=== PATIENT | female | born 1960 | race African-American/Black ===

== ENCOUNTER 2016-12-20 19:49 | Emergency (ER) | payer OTHER ==
--- NOTE | 2016-12-20 19:52 | PDOC ---
History of Present Illness - General History Source: Patient Exam Limitations: No Limitations - History of Present Illness Initial Comments: 12/20/16 21:04 A portion of this note was documented by scribe services under my direction. I have reviewed the details of the note, within reason, and agree with the documentation. The case summary and management plan written by me. Assessment and plan: This is a 56-year-old female who comes in complaining of possible foreign body in her an anterior abdominal wall. Patient is a diabetic with an insulin pump and comes in complaining of pain in the area where her insulin pump was. Her doctors concerned there may be a broken needle in the area so she had an x-ray that was negative for any foreign body. The area is indurated with no palpable collection however patient was started on Keflex by her doctor and I gave her a gram of vancomycin to cover her for MRSA. Patient was referred back to her primary care doctor for further management and evaluation. <Rose Sam I - Last Filed: 12/20/16 21:04> - General History Source: Patient Exam Limitations: No Limitations - History of Present Illness Initial Comments: The patient is a 56 year old female with a significant past medical history of diabetes, hypertension, hypercholesterolemia, hypothyroid, who presents to the emergency department today for further evaluation of a abdominal pain for 5 days and an abdominal mass for 2 days. The patient states that she began to feel pain in her right lower quadrant where her insulin pump tube enters her body. She states that 3 days ago she took the tube out. 2 days ago she noticed a mass forming in the area where the tube had been. The patient was sent to the emergency department by her doctor to rule out the possibility that the needle from her insulin pump is stuck in her abdomen. The patient denies fever, chills, and sweats. The patient denies nausea, vomiting, and diarrhea. The patient denies chest pain, cough, and shortness of breath. PCP: Dr. Alec Camargo [phone] PAST MEDICAL HISTORY: Diabetes, hypertension, hypercholesterolemia, hypothyroid PAST SURGICAL HISTORY: No significant history reported. FAMILY HISTORY: No pertinent history reported. SOCIAL HISTORY: Denied smoking. MEDICATIONS: Reviewed ALLERGIES: As per nursing notes General: No fevers or chills, no weakness, no weight loss HEENT: No change in vision. No sore throat, No ear pain CardioVascular: No chest pain or shortness of breath Respiratory:No cough, or wheezing. Gastrointestinal: no nausea, vomiting, diarrhea or constipation, No rectal bleeding Genitourinary: No dysuria, hematuria, or frequency Musculoskeletal: No joint or muscle pain or swelling Neurologic: No headache, vertigo, dizziness or loss of consciousness Psychiatric: nor depression Skin: No rashes or easy bruising Endocrine: no increased thirst or abnormal weight change Allergic: no skin or latex allergy All other systems reviewed and normal GENERAL: The patient is awake, alert, and fully oriented, in no acute distress. HEAD: Normal with no signs of trauma. EYES: Pupils equal, round and reactive to light, extraocular movements intact, sclera anicteric, conjunctiva clear. ABDOMEN: (+) 4 cm x 4 cm induration with no palpable collection, RLQ tenderness on palpation, with erythema. EXTREMITIES: Normal range of motion, no edema. NEUROLOGICAL: Normal speech, normal gait. PSYCH: Normal mood, normal affect. SKIN: Warm, Dry, normal turgor, no rashes or lesions noted. <Kahlil Bryson - Last Filed: 12/20/16 21:14> - General Chief Complaint: Foreign Body (FB) Stated Complaint: FB TO ABDOMEN Time Seen by Provider: 12/20/16 19:51 Past History - Past Medical History Diabetes: Yes (INSULIN) HTN: Yes Hypercholesterolemia: Yes Thyroid Disease: Yes - Psycho/Social/Smoking Cessation Hx Anxiety: No Suicidal Ideation: No Smoking Status: No Smoking History: Never smoked Number of Cigarettes Smoked Daily: 0 <Rose Sam I - Last Filed: 12/20/16 21:04> <Kahlil Bryson - Last Filed: 12/20/16 21:14> - Past Medical History Allergies/Adverse Reactions: Allergies Allergy/AdvReac Type Severity Reaction Status Date / Time No Known Allergies Allergy Verified 12/20/16 19:51 Home Medications: Ambulatory Orders Bld Pressure Medication 1 tab PO ASDIR 12/20/16 Cholesterol Medication 1 tab PO DAILY 12/20/16 Infusion Set For Insulin Pump [Comfort] 1 each 12/20/16 Thyroid Medication 1 tab PO DAILY 12/20/16 Review of Systems - Review of Systems Able to Perform ROS?: Yes <Kahlil Bryson - Last Filed: 12/20/16 21:14> *Physical Exam - Vital Signs Last Vital Signs Temp Pulse Resp BP Pulse Ox 98.8 F 86 18 186/98 97 12/20/16 19:50 12/20/16 20:35 12/20/16 20:35 12/20/16 20:35 12/20/16 20:35 <Kahlil Bryson - Last Filed: 12/20/16 21:14> ED Treatment Course - LABORATORY CBC & Chemistry Diagram: 12/20/16 21:10 - RADIOLOGY Radiograph Interpretation: EXAM#: TYPE/EXAM: RESULT: [id number] RAD/KUB (KID UR BLAD) Rule out abdominal wall foreign body. KUB There is an electronic device projecting over the right and left iliac bone. No other gross radiopaque foreign body is identified. The bowel gas pattern is nonobstructive. There is a moderate amount of fecal residue in the colon. Rule out constipation Visualized osseous structures appear intact. Significant left facet hypertrophy at L5-S1 level. Impression: See discussion above. Reported By: Froylan Valencia MD 12/20/162112 <Kahlil Bryson - Last Filed: 12/20/16 21:14> *DC/Admit/Observation/Transfer - Discharge Dispostion Admit: No <Rose Sam I - Last Filed: 12/20/16 21:04> - Attestations Scribe Attestion: Documentation prepared by Kahlil Bryson, acting as medical device engineer for Rose Sam MD/DO. <Kahlil Bryson - Last Filed: 12/20/16 21:14> Diagnosis at time of Disposition: Cellulitis of abdominal wall - Discharge Dispostion Disposition: HOME Condition at time of disposition: Stable - Referrals Referrals: Alec Camargo MD [Primary Care Provider] - - Patient Instructions Additional Instructions: Continue to take your cephalexin as prescribed. Tylenol or Motrin as needed for pain. This very important you call your doctor in the morning and follow-up with your doctor. Return to the emergency department immediately with ANY new, persistent or worsening symptoms. Continue any medications as previously prescribed by your physician. You should follow up with your primary doctor as soon as possible regarding today's emergency department visit. . Please make sure your doctor reviews the results of your emergency evaluation. Thank you for coming to the Emergency Department today for your care. It was a pleasure to see you today. Please note that your evaluation is INCOMPLETE until you follow-up with your doctor.
[2016-12-20 20:03] VITALS: TEMP 98.8; BMI 27.2
[2016-12-20 20:36] VITALS: BP 186/98; PULSE 86
[2016-12-20] MEDS ORDERED: VANCOMYCIN 1,000 MG in DEXTROSE 5%-WATER - 250 ML IVPB STA (21:00)
[2016-12-20] MEDS ORDERED: VANCOMYCIN 1,000 MG VIAL (RESTRICTED TO ID ONLY) ONE (21:08)
[2016-12-20 21:23] LABS: BASOPHIL 1.8 % (0-2.0); EOSINOPHIL 2.4 % (0-4.5); MCH 25.6 pg (25.7-33.7); MCHC 32.8 g/dl (32.0-36.0); MEAN CELL VOLUME 78.2 fl (80-96); MEAN PLT VOLUME 8.8 fl (7.5-11.1); NEUTROPHILS 59.4 % (42.8-82.8); PLATELET COUNT 340 K/MM3 (134-434); RDW 14.4 % (11.6-15.6); WHITE BLOOD COUNT 12.1 K/mm3 (4.0-10.8)
== END 2016-12-20 22:41 | disposition home or self-care (01) ==
LOC: FER 19:49 → SUPCPDRO 19:49 → FER 22:41
DX: L03.311 Cellulitis of abdominal wall (principal); E11.9 Type 2 diabetes mellitus without complications; Z79.4 Long term (current) use of insulin; Z96.41 Presence of insulin pump (external) (internal); I10 Essential (primary) hypertension; E78.00 Pure hypercholesterolemia, unspecified; E03.9 Hypothyroidism, unspecified
CPT/HCPCS: 36415; 74000-TC; 85025; 99283-25

== ENCOUNTER 2016-12-22 00:20 | Emergency (ER) | payer OTHER ==
[2016-12-22 00:31] VITALS: PULSE 76; TEMP 98.5; BMI 27.2
[2016-12-22 00:35] VITALS: BP 172/81
--- NOTE | 2016-12-22 00:42 | PDOC ---
History of Present Illness - General Chief Complaint: Pain Stated Complaint: SHOULDER PAIN/HEADACHE Time Seen by Provider: 12/22/16 00:40 History Source: Patient Exam Limitations: No Limitations - History of Present Illness Initial Comments: 12/22/16 00:40 This is a 56-year-old female who comes in complaining of abdominal pain and shoulder pain. Patient denies any injury or trauma to the area. Patient was here last night for a abdominal wall cellulitis secondary to her insulin pump. Other patient otherwise denies any fevers or chills. Patient is complaining of a mild headache. Patient denies any trauma to the shoulder. Patient said the pain is the outside of the shoulder. Patient took some ibuprofen for the pain with improvement in symptoms. Patient is other valdez denies any cough, congestion , shortness of breath, fever, chills or any other complaints. PAST MEDICAL HISTORY: Diabetes, PAST SURGICAL HISTORY: no significant history FAMILY HISTORY: no pertinant history SOCIAL HISTORY: Pt lives with family and is employed. MEDICATIONS: reviewed ALLERGIES: As per nursing notes Review of Systems General: No fevers or chills, no weakness, no weight loss HEENT: No change in vision. No sore throat,. No ear pain CardioVascular: No chest pain or shortness of breath Respiratory:No cough, or wheezing. Gastrointestinal: no nausea, vomitting, diarrhea or constipation, No rectal bleeding Genitourinary: No dysuria, hematuria, or frequency Musculoskeletal: Left posterior shoulder pain Neurologic: No headache, vertigo, dizziness or loss of consciousness Psychiatric: nor depression Skin: No rashes or easy bruising Endocrine: no increased thirst or abnormal weight change Allergic: no skin or latex allergy All other systems reviewed and normal GENERAL: The patient is awake, alert, and fully oriented, in no acute distress. HEAD: Normal with no signs of trauma. EYES: Pupils equal, round and reactive to light, extraocular movements intact, sclera anicteric, conjunctiva clear. EXTREMITIES: Left shoulder, there is mild pain on palpation. There is full range of motion of the shoulder. Neurovascular distal is intact Abdominal wall: Area of cellulitis of the anterior abdominal wall is much better and improved from last night. Assessment plan: NEUROLOGICAL: Normal speech, normal gait. PSYCH: Normal mood, normal affect. SKIN: Warm, Dry, normal turgor, no rashes or lesions noted. 12/22/16 00:43 Assessment and plan: This is a 56-year-old female with history of diabetes who comes in complaining of a sharp pain in the area of the abdominal wall cellulitis that has now since resolved as well as some pain in her shoulder. Patient denied any associated cardiac symptoms and pain is reproducible with palpation. Pain is along the anterior superior aspect of her shoulder. Patient was reassured told to take ibuprofen for the pain and discharged home. Past History - Past Medical History Allergies/Adverse Reactions: Allergies Allergy/AdvReac Type Severity Reaction Status Date / Time No Known Allergies Allergy Verified 12/20/16 19:51 Home Medications: Ambulatory Orders Bld Pressure Medication 1 tab PO ASDIR 12/20/16 Cholesterol Medication 1 tab PO DAILY 12/20/16 Infusion Set For Insulin Pump [Comfort] 1 each 12/20/16 Thyroid Medication 1 tab PO DAILY 12/20/16 Diabetes: Yes (INSULIN) HTN: Yes Hypercholesterolemia: Yes Thyroid Disease: Yes - Psycho/Social/Smoking Cessation Hx Anxiety: No Suicidal Ideation: No Smoking Status: No Smoking History: Never smoked Number of Cigarettes Smoked Daily: 0 Hx Alcohol Use: No Drug/Substance Use Hx: No Trauma Specific PMHX - Complaint Specific PMHX Back Injury: No Neck Injury: No *Physical Exam - Vital Signs Last Vital Signs Temp Pulse Resp BP Pulse Ox 98.5 F 76 16 172/81 99 12/22/16 00:26 12/22/16 00:26 12/22/16 00:26 12/22/16 00:34 12/22/16 00:26 *DC/Admit/Observation/Transfer Diagnosis at time of Disposition: Cellulitis of abdominal wall Left shoulder pain Qualifiers: Chronicity: acute Qualified Code(s): M25.512 - Pain in left shoulder - Discharge Dispostion Disposition: HOME Condition at time of disposition: Stable - Referrals Referrals: Alec Camargo MD [Primary Care Provider] - - Patient Instructions Additional Instructions: Continue your antibiotics as prescribed. Tylenol or Motrin as needed for pain Return to the emergency department immediately with ANY new, persistent or worsening symptoms. Continue any medications as previously prescribed by your physician. You should follow up with your primary doctor as soon as possible regarding today's emergency department visit. . Please make sure your doctor reviews the results of your emergency evaluation. Thank you for coming to the Emergency Department today for your care. It was a pleasure to see you today. Please note that your evaluation is INCOMPLETE until you follow-up with your doctor.
== END 2016-12-22 00:44 | disposition home or self-care (01) ==
LOC: FER 00:20
DX: L03.311 Cellulitis of abdominal wall (principal); M25.512 Pain in left shoulder; I10 Essential (primary) hypertension; E78.00 Pure hypercholesterolemia, unspecified; E11.9 Type 2 diabetes mellitus without complications; Z79.4 Long term (current) use of insulin
CPT/HCPCS: 99282-25

== ENCOUNTER 2018-12-20 11:05 | Emergency (ER) | payer OTHER ==
--- NOTE | 2018-12-20 11:07 | PDOC ---
Attending Attestation - Resident Resident Name: Aurelia Jones - ED Attending Attestation I have performed the following: I have examined & evaluated the patient, The case was reviewed & discussed with the resident, I agree w/resident's findings & plan, Exceptions are as noted - HPI HPI: 12/20/18 11:25 Irritation and pain plantar aspect of left great toe. Stepped on an unknown object yesterday. No swelling, redness, warmth, or drainage. Insulin-dependent diabetes for 20 years, on insulin, with well controlled blood sugars, and no known endorgan involvement. - Physicial Exam PE: 12/20/18 11:26 PE is normal except for what appears to be a superficial splinter in the plantar aspect of the distal phalanx, left great toe. No swelling, induration, erythema, heat, or severe tenderness to palpation. Full range of motion of the toe, good capillary refill, and no sensory deficits. - Medical Decision Making 12/20/18 11:27 Impression: Superficial splinter Plan: Splinter was easily removed intact and appears to be a sliver of metal. No bleeding or other drainage. Patient feels much better and foreign body sensation is no longer appreciated. Too superficial to require an x-ray. Tetanus is up-to-date. Wound care instructions were given. Recheck immediately if there is any sign of infection including pain, swelling, redness, warmth, or drainage. Fully ambulatory without any alteration of gait, to follow-up as directed.
[2018-12-20 11:08] VITALS: BMI 30.2
--- NOTE | 2018-12-20 11:10 | PDOC ---
History of Present Illness - General Chief Complaint: Pain, Acute Stated Complaint: LEFT TOE PAIN Time Seen by Provider: 12/20/18 11:07 History Source: Patient Exam Limitations: No Limitations - History of Present Illness Initial Comments: 12/20/18 11:11 58 year old woman w/ significant past medical history of diabetes, hypertension , hypercholesterolemia, hypothyroid, who presents to the emergency department today for complaints of L big toe sharp pain that started 3 days ago when [place] and felt that something poked her foot. Since then she has had persistence of the pain and shooting sensation from the site into the calf. She uses an insulin injections and her blood sugars range from 98-125. She denies any loss of sensation, fevers, rashes, weakness, joint swelling or pain since the incident. She has no other complaints at this time. Past History - Past Medical History Allergies/Adverse Reactions: Allergies Allergy/AdvReac Type Severity Reaction Status Date / Time No Known Allergies Allergy Verified 12/20/18 11:06 Home Medications: Ambulatory Orders Amlodipine Besylate [Norvasc -] 10 mg PO DAILY 12/20/18 Atenolol [Tenormin -] 50 mg PO DAILY 12/20/18 Insulin Aspart [Novolog] 0 unit SQ DAILY 12/20/18 Insulin Lispro [Humalog] 0 unit SQ TID 12/20/18 Levothyroxine [Synthroid -] 100 mcg PO DAILY 12/20/18 Valsartan [Diovan] 160 mg PO DAILY 12/20/18 COPD: No Diabetes: Yes (INSULIN) HTN: Yes Hypercholesterolemia: Yes Thyroid Disease: Yes - Suicide/Smoking/Psychosocial Hx Smoking Status: No Smoking History: Never smoked Number of Cigarettes Smoked Daily: 0 Hx Alcohol Use: Yes (OCASIONAL) Drug/Substance Use Hx: No Review of Systems - Review of Systems Able to Perform ROS?: Yes Comments:: 12/20/18 11:13 GENERAL/CONSTITUTIONAL: No fever or chills. No weakness. HEAD, EYES, EARS, NOSE AND THROAT: No change in vision. No ear pain or discharge. No sore throat. CARDIOVASCULAR: No chest pain or shortness of breath RESPIRATORY: No cough, wheezing, or hemoptysis. GASTROINTESTINAL: No nausea, vomiting, diarrhea or constipation. GENITOURINARY: No dysuria, frequency, or change in urination. MUSCULOSKELETAL: No joint or muscle swelling or pain. No neck or back pain. SKIN: No rash NEUROLOGIC: No headache, vertigo, loss of consciousness, or change in strength/ sensation. ENDOCRINE: No increased thirst. No abnormal weight change HEMATOLOGIC/LYMPHATIC: No anemia, easy bleeding, or history of blood clots. ALLERGIC/IMMUNOLOGIC: No hives or skin allergy. Is the patient limited Kazakh proficient: No *Physical Exam - Vital Signs Last Vital Signs Temp Pulse Resp BP Pulse Ox 0/0 L 12/20/18 11:06 - Physical Exam Comments: 12/20/18 11:13 GENERAL: Awake, alert, and fully oriented, in no acute distress HEAD: No signs of trauma, normocephalic, atraumatic EYES: EOMI, sclera anicteric, conjunctiva clear ENT: oropharynx clear without exudates. Moist mucosa NECK: Normal ROM, supple LUNGS: No distress, speaks full sentences, clear to auscultation bilaterally HEART: Regular rate and rhythm, normal S1 and S2, no murmurs, rubs or gallops, peripheral pulses normal and equal bilaterally. ABDOMEN: Soft, nontender, normoactive bowel sounds. No guarding, no rebound. No masses EXTREMITIES : Normal range of motion, no edema. No clubbing or cyanosis. + small metal piece in L big toe NEUROLOGICAL: Cranial nerves II through XII grossly intact. Normal speech, no focal sensorimotor deficits SKIN: Warm, Dry, normal turgor, no rashes or lesions noted Medical Decision Making - Medical Decision Making 12/20/18 11:25 58 year old woman w/ significant past medical history of diabetes, hypertension , hypercholesterolemia, hypothyroid, who presents to the emergency department today for complaints of L big toe sharp pain that started 3 days ago [place] and felt that something poked her foot. Since then she has had persistence of the pain and shooting sensation from the site into the calf. She uses an insulin injections and her blood sugars range from 98-125. She denies any loss of sensation, fevers, rashes, weakness, joint swelling or pain since the incident. She has no other complaints at this time. ED Course: patient with superficial very small metal piece in toe immediate releif of pain upon removal will have patient monitor symptosm. f./ valerie pcp retru nprecatutison *DC/Admit/Observation/Transfer Diagnosis at time of Disposition: Foreign bdy foot/toe-inf - Discharge Dispostion Disposition: HOME Condition at time of disposition: Stable Decision to Admit order: No - Referrals Referrals: Alec Camargo MD [Primary Care Provider] - - Patient Instructions Printed Discharge Instructions: DI for Removal of Foreign Body From Skin Additional Instructions: You were seen in the ED for complaints of possible foreign body in the L toe. In the ED you were evaluated with removal of the metal piece. Your symptoms resolved. You are advised to follow up with your Primary Care Physician within 1 week. Return to the ED immediately if you experience worsening pain in the toe and foot, appearance of rash, swelling or fever. - Post Discharge Activity
[2018-12-20 11:17] VITALS: BP 195/83; PULSE 63; TEMP 98.1
== END 2018-12-20 11:35 | disposition home or self-care (01) ==
LOC: FER 11:05
DX: S90.452A Superficial foreign body, left great toe, initial encounter (principal); X58.XXXA Exposure to other specified factors, initial encounter; Y93.89 Activity, other specified; Y92.89 Other specified places as the place of occurrence of the external cause; E11.9 Type 2 diabetes mellitus without complications; I10 Essential (primary) hypertension; E78.00 Pure hypercholesterolemia, unspecified; E03.9 Hypothyroidism, unspecified; Z79.4 Long term (current) use of insulin; E07.9 Disorder of thyroid, unspecified
CPT/HCPCS: 99282-25

== ENCOUNTER 2019-06-13 10:48 | Inpatient (IN) | payer OTHER ==
--- NOTE | 2019-06-13 10:58 | PDOC ---
History of Present Illness - General Chief Complaint: Rash Stated Complaint: RASH Time Seen by Provider: 06/13/19 10:57 - History of Present Illness Initial Comments: 06/13/19 11:59 59 y/o hx of HTN, IDDM, kidney disease, presents to the ER with 4 days of left shoulder pain and 1 day of rash. She began having burning pain over her shoulder 4 days ago radiating down to her elbow. Pain is 7/10 and exacerbated by touch. she took tylenol with no relief. She woke up with a rash today. She has had associated headache since yesterday. She denies any fevers, chills, itching, sick contacts, eye pain, ear pain. Past History - Past Medical History Allergies/Adverse Reactions: Allergies Allergy/AdvReac Type Severity Reaction Status Date / Time No Known Allergies Allergy Verified 06/13/19 10:57 Home Medications: Ambulatory Orders Atenolol [Tenormin -] 50 mg PO DAILY 12/20/18 Insulin Lispro [Humalog] 0 unit SQ TID 12/20/18 Levothyroxine [Synthroid -] 100 mcg PO DAILY 12/20/18 Aspirin Coated [Ecotrin -] 81 mg PO DAILY 06/13/19 Gabapentin 300 mg PO BID 7 Days #14 capsule 06/13/19 Insulin Glargine,Hum.rec.anlog [Basaglar Kwikpen U-100] 50 unit SQ DAILY Nifedipine ER [Procardia XL -] 30 mg PO DAILY 30 Days #30 tab.er.[email or web address] 06/13/19 Nifedipine ER [Procardia Xl -] 30 mg PO DAILY 06/13/19 Valacyclovir HCl [Valtrex] 1,000 mg PO TID 7 Days #21 tablet 06/13/19 Valsartan 320 mg PO DAILY 06/13/19 COPD: No Diabetes: Yes (INSULIN) HTN: Yes Hypercholesterolemia: Yes Thyroid Disease: Yes - Psycho Social/Smoking Cessation Hx Smoking Status: No Smoking History: Never smoked Number of Cigarettes Smoked Daily: 0 Hx Alcohol Use: Yes (OCASIONAL) Drug/Substance Use Hx: No Review of Systems - Review of Systems Constitutional: No: Chills, Fever HEENTM: No: Eye Pain, Blurred Vision Respiratory: No: Cough, Shortness of Breath Cardiac (ROS): No: Chest Pain, Lightheadedness ABD/GI: No: Nausea, Vomiting : No: Burning, Dysuria, Hematuria, Testicular Swelling Musculoskeletal: No: Muscle Pain Integumentary: Yes: Rash. No: Bruising Neurological: Yes: Headache. No: Numbness Hematologic/Lymphatic: No: Anemia, Blood Clots *Physical Exam - Physical Exam Comments: 06/13/19 12:03 PE: GENERAL: Awake, alert, and fully oriented, in no acute distress HEAD: No signs of trauma, normocephalic, atraumatic EYES: PERRLA, EOMI, sclera anicteric, conjunctiva clear ENT: Auricles normal inspection, hearing grossly normal, nares patent, oropharynx clear without exudates. Moist mucosa NECK: Normal ROM, supple, no lymphadenopathy, JVD, or masses LUNGS: No distress, speaks full sentences, clear to auscultation bilaterally HEART: Regular rate and rhythm, normal S1 and S2, no murmurs, rubs or gallops, peripheral pulses normal and equal bilaterally. ABDOMEN: Soft, nontender, normoactive bowel sounds. No guarding, no rebound. No masses EXTREMITIES : Normal inspection, Normal range of motion, no edema. trace edema lower bilateral extremities. NEUROLOGICAL: Cranial nerves II through XII grossly intact. Normal speech, normal gait, no focal sensorimotor deficits SKIN: Warm, Dry, erythematous vesicular bullous rash on shoulder, down to clavicles and posteriorly in the upper back on the left. Does not cross the midline. no crusting observed. Area is tender to touch. ED Treatment Course - LABORATORY CBC & Chemistry Diagram: 06/13/19 12:45 06/13/19 12:45 Medical Decision Making - Medical Decision Making 06/13/19 12:06 59 y/o hx of HTN, IDDM, kidney disease, presents to the ER with 4 days of left shoulder pain and 1 day of rash BP was elevated at 210/94 patient given Nidfedipine 30 mg PO (home dose) gabentin 300mg po valtrex 1g PO Same medications sent to pharmacy as well Will reassess for pain and blood pressure control 06/13/19 13:27 Patients Cr 2.0 06/13/19 13:34 Bp still elevated 224/98 06/13/19 13:52 pt will be admitted for hypertensive urgency -labetalol 10mg IV ordered -IV tylenol for headache -will get ekg and cxr -cardiac monitoring 06/13/19 13:58 EKG: normal EKG, normal sinus rhythm 06/13/19 14:09 microblog for admission sent 06/13/19 14:15 BP at 175/105 pushing another 10mg of labetalol IV. Pt admitted for inpatient management Discharge - Discharge Information Condition: Good - Additional Discharge Information - Follow up/Referral - Patient Discharge Instructions - Post Discharge Activity
[2019-06-13 11:07] VITALS: BMI 29.9
[2019-06-13] MEDS ORDERED: NIFEdipine E.R. 30 MG TABLET (FP) ONE (11:37)
[2019-06-13] MEDS: NIFEdipine E.R. 30 MG TABLET (FP) PO SCH (11:39)
[2019-06-13] MEDS ORDERED: GABAPENTIN 300 MG CAPSULE (FP) PO ONE (11:41)
[2019-06-13] MEDS ORDERED: valACYclovir HCL 1000 MG TABLET PO ONE (11:47)
[2019-06-13] MEDS ORDERED: GABAPENTIN 300 MG CAPSULE (FP) ONE (11:48)
[2019-06-13] MEDS ORDERED: valACYclovir HCL 500 MG TABLET (FP) ONE (11:48)
[2019-06-13] MEDS ORDERED: traMADol HCL 50 MG TABLET PO ONE (11:49)
[2019-06-13 12:56] LABS: BASO % 0.6 % (0-2.0); EOS % 3.4 % (0-4.5); HEMATOCRIT 35.7 % (32.4-45.2); HEMOGLOBIN 11.6 GM/dl (10.7-15.3); LYMPH % 25.6 % (8-40); MCH 25.9 pg (25.7-33.7); MCHC 32.5 g/dl (32.0-36.0); MEAN CELL VOLUME 79.6 fl (80-96); MEAN PLT VOLUME 8.3 fl (7.5-11.1); MONO % 6.1 % (3.8-10.2); NEUT % 64.3 % (42.8-82.8); PLATELET COUNT 367 K/MM3 (134-434); RBC 4.49 M/mm3 (3.60-5.2); RDW 15.7 % (11.6-15.6); WHITE BLOOD COUNT 6.7 K/mm3 (4.0-10.8)
[2019-06-13 13:05] LABS: EPITHELIAL CELLS MODERATE /hpf
[2019-06-13 13:07] LABS: ALBUMIN 3.9 g/dl (3.4-5.0); BILIRUBIN,TOTAL 0.6 mg/dl (0.2-1); CALCIUM 8.8 mg/dl (8.5-10); POTASSIUM 4.8 mmol/L (3.5-5.1); TOT PROT 7.2 g/dl (6.4-8.2)
[2019-06-13] MEDS ORDERED: LABETALOL HCL 5 MG/1 ML (100MG/20 ML VIAL) ONE (13:47)
[2019-06-13] MEDS ORDERED: LABETALOL HCL 5 MG/1 ML (100MG/20 ML VIAL) IVPUSH ONE ×2 (13:47→14:14)
[2019-06-13] MEDS ORDERED: ACETAMINOPHEN 1000 MG/100 ML VIAL (NON FORMULARY) IVPB ONE (13:55)
[2019-06-13] MEDS ORDERED: ACETAMINOPHEN INJECTION 100 ML IVPB ONE (13:57)
--- NOTE | 2019-06-13 14:55 | PDOC ---
Attending Attestation - Resident Resident Name: Mauro Carlson - ED Attending Attestation I have performed the following: I have examined & evaluated the patient, The case was reviewed & discussed with the resident, I agree w/resident's findings & plan - HPI HPI: 06/13/19 14:35 59-year-old female with a history of hypertension and chronic kidney disease presents complaining of onset today of burning painful rash over the left lateral neck and shoulder. Of note, patient ran out of her nifedipine 30 mg extended release about 1 week ago and she is attempting to get more from the pharmacy. She does have her other medications and she is continuing her to other blood pressure medications. She denies any chest pain, back pain, hematuria, but she does complain of a moderate diffuse headache. - Physicial Exam PE: 06/13/19 14:36 Vital Signs - 24 hr 06/13/19 06/13/19 06/13/19 10:56 11:56 12:21 Temperature 98.3 F Pulse Rate 58 L Pulse Rate [ Left Radial] Respiratory 15 Rate Blood Pressure 210/94 H Blood Pressure 211/102 H [Left Arm] Blood Pressure 219/107 H [Right Arm] O2 Sat by Pulse 98 Oximetry (%) 06/13/19 06/13/19 06/13/19 13:30 14:00 14:15 Temperature Pulse Rate Pulse Rate [ 63 Left Radial] Respiratory 15 Rate Blood Pressure Blood Pressure [Left Arm] Blood Pressure 234/98 H 190/100 H 175/105 H [Right Arm] O2 Sat by Pulse 95 Oximetry (%) On examination, the blood pressure is elevated. The patient is awake, alert, and fully oriented. There are no neurological deficits. Lungs are clear, heart is regular rhythm, abdomen is benign. Skin examination is notable for a shingles rash over the dermatome overlying the left lateral neck and the top of the shoulder. - Medical Decision Making 06/13/19 14:37 Patient is here with acute shingles rash with burning pain consistent with neuropathic pain from shingles. Patient also has severely elevated blood pressure, she was given her nifedipine extended release and observed for several hours, and her blood pressure remained over 200 systolic. Her only symptoms are a diffuse headache which is better after Tylenol, but the headache continues. There are no focal neurological complaints, and the neurological examination is normal. Laboratory studies notable for elevated creatinine to 2.0. Prior creatinine has been as high as 2.3 in the past. She is known to have chronic kidney disease related to hypertension. Other findings of the acute rash are consistent with shingles in the left cervical dermatome. Patient started on Valtrex.
--- NOTE | 2019-06-13 15:52 | HP ---
CHIEF COMPLAINT: PCP: Mary Jo HISTORY OF PRESENT ILLNESS: This is a 59-year-old female with a history of hypertension,and chronic kidney disease,who presents to ER complaining of burning painful rash over the left lateral neck and shoulder and also reports MELGAR. In ER, found to have BP 211/ 102. Pt reports that she ran out of her Nifedipine 30 mg extended release about 1 week ago and she is attempting to get more from the pharmacy. Pt denies cp, sob,palpitations,abdominal pain,, N/V/D or urinary symptoms. ER course was notable for: (1) BP 211/102 (2)CXr: No acute pathology (3) CBC stable, bun/ cre 26/2, ALk 148 Recent Travel:No PAST MEDICAL HISTORY: as mentioned above PAST SURGICAL HISTORY: C- section Social History: Smoking:No Alcohol:No Drugs:NO Allergies No Known Allergies Allergy (Verified 06/13/19 10:57) HOME MEDICATIONS: Home Medications Medication Instructions Recorded Atenolol [Tenormin -] 50 mg PO DAILY 12/20/18 Insulin Lispro [Humalog] 0 unit SQ TID 12/20/18 Levothyroxine [Synthroid -] 100 mcg PO DAILY 12/20/18 Aspirin Coated [Ecotrin -] 81 mg PO DAILY 06/13/19 Gabapentin 300 mg PO BID 7 Days #14 capsule 06/13/19 Insulin Glargine,Hum.rec.anlog 50 unit SQ DAILY 06/13/19 [Basaglar Kwikpen U-100] Nifedipine ER [Procardia XL -] 30 mg PO DAILY 30 Days #30 06/13/19 tab.er.24 Nifedipine ER [Procardia Xl -] 30 mg PO DAILY 06/13/19 Valacyclovir HCl [Valtrex] 1,000 mg PO TID 7 Days #21 tablet 06/13/19 Valsartan 320 mg PO DAILY 06/13/19 REVIEW OF SYSTEMS CONSTITUTIONAL: Absent: fever, chills, diaphoresis, generalized weakness, malaise, loss of appetite, weight change HEENT: Absent: rhinorrhea, nasal congestion, throat pain, throat swelling, difficulty swallowing, mouth swelling, ear pain, eye pain, visual changes CARDIOVASCULAR: Absent: chest pain, syncope, palpitations, irregular heart rate, lightheadedness , peripheral edema RESPIRATORY: Absent: cough, shortness of breath, dyspnea with exertion, orthopnea, wheezing, stridor, hemoptysis GASTROINTESTINAL: Absent: abdominal pain, abdominal distension, nausea, vomiting, diarrhea, constipation, melena, hematochezia GENITOURINARY: Absent: dysuria, frequency, urgency, hesitancy, hematuria, flank pain, genital pain MUSCULOSKELETAL: Absent: myalgia, arthralgia, joint swelling, back pain, neck pain SKIN: rash left shoulder Absent: rash, itching, pallor HEMATOLOGIC/IMMUNOLOGIC: Absent: easy bleeding, easy bruising, lymphadenopathy, frequent infections ENDOCRINE: Absent: unexplained weight gain, unexplained weight loss, heat intolerance, cold intolerance NEUROLOGIC: Absent: headache, focal weakness or paresthesias, dizziness, unsteady gait, seizure, mental status changes, bladder or bowel incontinence PSYCHIATRIC: Absent: anxiety, depression, suicidal or homicidal ideation, hallucinations. PHYSICAL EXAMINATION Vital Signs - 24 hr 06/13/19 06/13/19 06/13/19 10:56 11:56 12:21 Temperature 98.3 F Pulse Rate 58 L Pulse Rate [ Left Radial] Respiratory 15 Rate Blood Pressure 210/94 H Blood Pressure 211/102 H [Left Arm] Blood Pressure 219/107 H [Right Arm] O2 Sat by Pulse 98 Oximetry (%) 06/13/19 06/13/19 06/13/19 13:30 14:00 14:15 Temperature Pulse Rate Pulse Rate [ 63 Left Radial] Respiratory 15 Rate Blood Pressure Blood Pressure [Left Arm] Blood Pressure 234/98 H 190/100 H 175/105 H [Right Arm] O2 Sat by Pulse 95 Oximetry (%) 06/13/19 15:17 Temperature Pulse Rate Pulse Rate [ 63 Left Radial] Respiratory 20 Rate Blood Pressure Blood Pressure 177/73 H [Left Arm] Blood Pressure [Right Arm] O2 Sat by Pulse Oximetry (%) GENERAL: Awake, alert, and fully oriented, in no acute distress. HEAD: Normal with no signs of trauma. EYES: Pupils equal, round and reactive to light, extraocular movements intact, sclera anicteric, conjunctiva clear. No lid lag. EARS, NOSE, THROAT: Ears normal, nares patent, oropharynx clear without exudates. Moist mucous membranes. NECK: Normal range of motion, supple without lymphadenopathy, JVD, or masses. LUNGS: Breath sounds equal, clear to auscultation bilaterally. No wheezes, and no crackles. No accessory muscle use. HEART: Regular rate and rhythm, normal S1 and S2 without murmur, rub or gallop. ABDOMEN: Soft, nontender, not distended, normoactive bowel sounds, no guarding, no rebound, no masses. No hepatomegaly or splenomegaly. MUSCULOSKELETAL: Normal range of motion at all joints. No bony deformities or tenderness. No CVA tenderness. UPPER EXTREMITIES: 2+ pulses, warm, well-perfused. No cyanosis. No clubbing. No peripheral edema. LOWER EXTREMITIES: 2+ pulses, warm, well-perfused. No calf tenderness. No peripheral edema. NEUROLOGICAL: Cranial nerves II-XII intact. Normal speech. Normal gait. PSYCHIATRIC: Cooperative. Good eye contact. Appropriate mood and affect. SKIN: Warm, dry, normal turgor, normal capillary refill. Blister rashes noted on left lateral neck and the top of the shoulder. Laboratory Results - last 24 hr 06/13/19 06/13/19 06/13/19 12:45 12:45 12:50 WBC 6.7 RBC 4.49 Hgb 11.6 Hct 35.7 MCV 79.6 L MCH 25.9 MCHC 32.5 RDW 15.7 H Plt Count 367 MPV 8.3 Absolute Neuts (auto) 4.4 Neutrophils % 64.3 Lymphocytes % 25.6 Monocytes % 6.1 Eosinophils % 3.4 Basophils % 0.6 Sodium 141 Potassium 4.8 Chloride 108 H Carbon Dioxide 24 Anion Gap 9 BUN 26.0 H Creatinine 2.0 H Est GFR (CKD-EPI)AfAm 30.68 Est GFR (CKD-EPI)NonAf 26.47 Random Glucose 75 Calcium 8.8 Total Bilirubin 0.6 AST 15 ALT 15 Alkaline Phosphatase 148 H Total Protein 7.2 Albumin 3.9 Urine Color Yellow Urine Appearance Clear Urine pH 6.0 Urine Protein 3+ H Urine Glucose (UA) Negative Urine Ketones Negative Urine Blood Trace-lysed Urine Nitrite Negative Urine Bilirubin Negative Urine Urobilinogen 0.2 Ur Leukocyte Esterase Negative Urine RBC 0-2 Urine WBC 0-2 Ur Transition Epith Cell Moderate ASSESSMENT/PLAN: 59-year-old female with a history of hypertension, DM,and chronic kidney disease , who presents complaining of onset today of burning painful rash over the left lateral neck and shoulder. In ER, found to have uncontrolled HTN. * Hypertensive urgency - s/p labetalol and Procardia in ER - will cont on home meds - will monitor BP closely * Shingles - started on Valtrex - pain control * CKD - cre 2 now, previous admission cre 2.3 * DM - FS AC& HS - Insulin sliding scale and Levemir - Diabetic diet * VTE: Heparin SQ * F/E/N- Low salt diet - replace electrolytes as needed Code status: Full Family Medical History Family History: Denies Visit type - Emergency Visit Emergency Visit: Yes ED Registration Date: 06/13/19 Care time: The patient presented to the Emergency Department on the above date and was hospitalized for further evaluation of their emergent condition. - New Patient This patient is new to me today: Yes Date on this admission: 06/15/19 - Critical Care Critical Care patient: No
[2019-06-13] MEDS ORDERED: hydrALAZINE HCL 20 MG/ML VIAL IVPUSH PRN (16:17)
[2019-06-13] MEDS: ACETAMINOPHEN 325 MG TABLET (FP) PO PRN (20:38)
[2019-06-13] MEDS: GABAPENTIN 100 MG CAPSULE (FP) PO SCH (21:43)
[2019-06-13] MEDS: INSULIN SLIDING SCALE (NOVOLOG) 1 VIAL SQ SCH (21:47)
[2019-06-14 06:13] VITALS: BP 155/72; PULSE 65; TEMP 98.7
[2019-06-14] MEDS: GABAPENTIN 100 MG CAPSULE (FP) PO SCH (06:47)
[2019-06-14] MEDS: INSULIN SLIDING SCALE (NOVOLOG) 1 VIAL SQ SCH ×2 (06:47→13:12)
[2019-06-14] MEDS ORDERED: LEVOTHYROXINE NA 100 MCG TABLET (FP) PO SCH (07:00)
[2019-06-14] MEDS ORDERED: INSULIN (LEVEMIR) 100 UNITS/ML UNITS SQ SCH (07:00)
[2019-06-14] MEDS: ACETAMINOPHEN 325 MG TABLET (FP) PO PRN (07:04)
[2019-06-14 09:02] LABS: BASO % 0.4 % (0-2.0); EOS % 3.1 % (0-4.5); HEMATOCRIT 31.3 % (32.4-45.2); HEMOGLOBIN 10.2 GM/dl (10.7-15.3); LYMPH % 26.8 % (8-40); MCH 25.7 pg (25.7-33.7); MCHC 32.6 g/dl (32.0-36.0); MONO % 7.8 % (3.8-10.2); NEUT % 61.9 % (42.8-82.8); PLATELET COUNT 285 K/MM3 (134-434); RBC 3.96 M/mm3 (3.60-5.2); RDW 15.5 % (11.6-15.6); WHITE BLOOD COUNT 6.2 K/mm3 (4.0-10.8)
[2019-06-14] MEDS ORDERED: IBUPROFEN 600 MG TABLET (FP) PO ONE (09:21)
[2019-06-14 09:22] LABS: CALCIUM 8.7 mg/dl (8.5-10); CREATININE 2.1 mg/dl (0.55-1.3); POTASSIUM 4.7 mmol/L (3.5-5.1)
[2019-06-14] MEDS ORDERED: ATENOLOL 50 MG TABLET (FP) PO SCH (10:00)
[2019-06-14] MEDS ORDERED: NIFEdipine E.R. 30 MG TABLET (FP) PO SCH (10:00)
[2019-06-14] MEDS ORDERED: PATIENT'S OWN MEDICATION (NON-FORMULARY) (Valsartan [Valsartan] 320 MG) PO SCH (10:00)
[2019-06-14] MEDS ORDERED: PATIENT'S OWN MEDICATION (NON-FORMULARY) (Insulin Glargine,Hum.Rec.Anlog [Basaglar Kwikpen SQ SCH (10:00)
[2019-06-14] MEDS ORDERED: VALSARTAN 160 MG TABLET (UD) PO SCH (10:00)
[2019-06-14] MEDS ORDERED: ASPIRIN COATED 81 MG TABLET.EC PO SCH (10:00)
[2019-06-14] MEDS: NIFEdipine E.R. 30 MG TABLET (FP) PO SCH (10:32)
--- NOTE | 2019-06-14 12:00 | DS ---
Physical Exam: SUBJECTIVE: Patient seen and examined, PT BP improved, reports running out of Nifedipine. labs stable. creatine 2.1. pt is medically stable for discharge. pt advised to be seen by PCP for clearance to return to work, due to Shingles. pt advised not to be around people who have not had chicjen pox, or are . pt verbalizes understanding. 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 OBJECTIVE: Vital Signs Period Temp Pulse Resp BP Sys/Marquez Pulse Ox Last 24 Hr 97.9 F-98.7 F 60-67 15-20 137-234/64-105 95-98 PHYSICAL EXAM GENERAL: The patient is awake, alert, and fully oriented, in no acute distress. HEAD: Normal with no signs of trauma. EYES: PERRL, extraocular movements intact, sclera anicteric, conjunctiva clear. ENT: Ears normal, nares patent, oropharynx clear without exudates, moist mucous membranes. NECK: Trachea midline, full range of motion, supple. LUNGS: Breath sounds equal, clear to auscultation bilaterally, no wheezes, no crackles, no accessory muscle use. HEART: Regular rate and rhythm, S1, S2 without murmur, rub or gallop. ABDOMEN: Soft, nontender, nondistended, normoactive bowel sounds, no guarding, no rebound, no hepatosplenomegaly, no masses. EXTREMITIES: 2+ pulses, warm, well-perfused, no edema. NEUROLOGICAL: Cranial nerves II through XII grossly intact. Normal speech, gait not observed. PSYCH: Normal mood, normal affect. SKIN: left shoulder, rash, vesicles noted LABS Laboratory Results - last 24 hr 06/13/19 06/13/19 06/13/19 12:45 12:45 12:50 WBC 6.7 RBC 4.49 Hgb 11.6 Hct 35.7 MCV 79.6 L MCH 25.9 MCHC 32.5 RDW 15.7 H Plt Count 367 MPV 8.3 Absolute Neuts (auto) 4.4 Neutrophils % 64.3 Lymphocytes % 25.6 Monocytes % 6.1 Eosinophils % 3.4 Basophils % 0.6 Sodium 141 Potassium 4.8 Chloride 108 H Carbon Dioxide 24 Anion Gap 9 BUN 26.0 H Creatinine 2.0 H Est GFR (CKD-EPI)AfAm 30.68 Est GFR (CKD-EPI)NonAf 26.47 POC Glucometer Random Glucose 75 Calcium 8.8 Total Bilirubin 0.6 AST 15 ALT 15 Alkaline Phosphatase 148 H Total Protein 7.2 Albumin 3.9 Urine Color Yellow Urine Appearance Clear Urine pH 6.0 Urine Protein 3+ H Urine Glucose (UA) Negative Urine Ketones Negative Urine Blood Trace-lysed Urine Nitrite Negative Urine Bilirubin Negative Urine Urobilinogen 0.2 Ur Leukocyte Esterase Negative Urine RBC 0-2 Urine WBC 0-2 Ur Transition Epith Cell Moderate 06/13/19 06/14/19 06/14/19 21:44 06:00 06:00 WBC 6.2 RBC 3.96 Hgb 10.2 L Hct 31.3 L MCV 79.0 L MCH 25.7 MCHC 32.6 RDW 15.5 Plt Count 285 MPV 9.0 Absolute Neuts (auto) 3.8 Neutrophils % 61.9 Lymphocytes % 26.8 Monocytes % 7.8 Eosinophils % 3.1 Basophils % 0.4 Sodium 142 Potassium 4.7 Chloride 111 H Carbon Dioxide 20 L Anion Gap 11 BUN 27.0 H Creatinine 2.1 H Est GFR (CKD-EPI)AfAm 28.92 Est GFR (CKD-EPI)NonAf 24.95 POC Glucometer 132 Random Glucose 61 L Calcium 8.7 Total Bilirubin AST ALT Alkaline Phosphatase Total Protein Albumin Urine Color Urine Appearance Urine pH Urine Protein Urine Glucose (UA) Urine Ketones Urine Blood Urine Nitrite Urine Bilirubin Urine Urobilinogen Ur Leukocyte Esterase Urine RBC Urine WBC Ur Transition Epith Cell 06/14/19 06/14/19 06:39 07:07 WBC RBC Hgb Hct MCV MCH MCHC RDW Plt Count MPV Absolute Neuts (auto) Neutrophils % Lymphocytes % Monocytes % Eosinophils % Basophils % Sodium Potassium Chloride Carbon Dioxide Anion Gap BUN Creatinine Est GFR (CKD-EPI)AfAm Est GFR (CKD-EPI)NonAf POC Glucometer 62 77 Random Glucose Calcium Total Bilirubin AST ALT Alkaline Phosphatase Total Protein Albumin Urine Color Urine Appearance Urine pH Urine Protein Urine Glucose (UA) Urine Ketones Urine Blood Urine Nitrite Urine Bilirubin Urine Urobilinogen Ur Leukocyte Esterase Urine RBC Urine WBC Ur Transition Epith Cell HOSPITAL COURSE: Date of Admission:06/13/19 Date of Discharge: 06/14/19 59-year-old female with a history of hypertension and chronic kidney disease, presents complaining of onset today of burning painful rash over the left lateral neck and shoulder. 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 DO NOT SCRATCH OR POP BLISTERS, DO NOT BE AROUND PEOPLE WHO HAS NOT HAD CHICKEN POX, LADIES WHO ARE . Referrals: Alec Camargo MD [Primary Care Provider] - Disposition: HOME - Home Medications Comprehensive Discharge Medication List: Ambulatory Orders Atenolol [Tenormin -] 50 mg PO DAILY 12/20/18 Insulin Lispro [Humalog] 0 unit SQ TID 12/20/18 Levothyroxine [Synthroid -] 100 mcg PO DAILY 12/20/18 Aspirin Coated [Ecotrin -] 81 mg PO DAILY 06/13/19 Gabapentin 300 mg PO BID 7 Days #14 capsule 06/13/19 Insulin Glargine,Hum.rec.anlog [Basaglar Kwikpen U-100] 50 unit SQ DAILY Nifedipine ER [Procardia XL -] 30 mg PO DAILY 06/13/19 Nifedipine ER [Procardia XL -] 30 mg PO DAILY 30 Days #30 tab.er.24 06/13/19 Valacyclovir HCl [Valtrex] 1,000 mg PO TID 7 Days #21 tablet 06/13/19 Valsartan 320 mg PO DAILY 06/13/19 This patient is new to me today: Yes Date on this admission: 06/14/19 Emergency Visit: Yes ED Registration Date: 06/13/19 Care time: The patient presented to the Emergency Department on the above date and was hospitalized for further evaluation of their emergent condition. Critical Care patient: No - Discharge Referral Referred to [facility] No
--- NOTE | 2019-06-14 12:08 | CONSULT ---
Consult Consult Specialty:: endocrine Reason for Consultation:: dm t1 - History of Present Illness Chief Complaint: weak History of Present Illness: 59-year-old female with a history of DMt1,ckd,hypertension who presents complaining of onset today of burning painful rash over the left lateral neck and shoulder.weak,anxious and had headache found to have high bp with rash on left shoulder with extension to elbow.she denies hypoglycemia nausea or vomiting. Of note, patient ran out of her nifedipine 30 mg extended release about 1 week ago and she is attempting to get more from the pharmacy. She does have her other medications and she is continuing her to other blood pressure medications - Past Medical History ...: No - Alcohol/Substance Use Hx Alcohol Use: Yes (OCASIONAL) - Smoking History Smoking history: Never smoked Aproximately how many cigarettes per day: 0 Home Medications - Allergies Allergies/Adverse Reactions: Allergies Allergy/AdvReac Type Severity Reaction Status Date / Time No Known Allergies Allergy Verified 06/13/19 10:57 - Home Medications Home Medications: Ambulatory Orders Atenolol [Tenormin -] 50 mg PO DAILY 12/20/18 Insulin Lispro [Humalog] 0 unit SQ TID 12/20/18 Levothyroxine [Synthroid -] 100 mcg PO DAILY 12/20/18 Aspirin Coated [Ecotrin -] 81 mg PO DAILY 06/13/19 Gabapentin 300 mg PO BID 7 Days #14 capsule 06/13/19 Insulin Glargine,Hum.rec.anlog [Basaglar Kwikpen U-100] 50 unit SQ DAILY Nifedipine ER [Procardia XL -] 30 mg PO DAILY 06/13/19 Nifedipine ER [Procardia XL -] 30 mg PO DAILY 30 Days #30 tab.er.24 06/13/19 Valacyclovir HCl [Valtrex] 1,000 mg PO TID 7 Days #21 tablet 06/13/19 Valsartan 320 mg PO DAILY 06/13/19 Review of Systems - Review of Systems Constitutional: reports: Loss of Appetite Eyes: reports: No Symptoms HENT: reports: No Symptoms Neck: reports: No Symptoms Cardiovascular: reports: No Symptoms Respiratory: reports: No Symptoms Gastrointestinal: reports: No Symptoms Genitourinary: reports: No Symptoms Breasts: reports: No Symptoms Reported Musculoskeletal: reports: Joint Pain, Muscle Pain Integumentary: reports: No Symptoms Physical Exam Vital Signs: Vital Signs Temperature 98.7 F 06/14/19 05:54 Pulse Rate 65 06/14/19 05:54 Respiratory Rate 17 06/14/19 05:54 Blood Pressure 155/72 06/14/19 05:54 O2 Sat by Pulse Oximetry (%) 96 06/14/19 05:54 Constitutional: Yes: Calm Eyes: Yes: EOM Intact HENT: Yes: Normocephalic Neck: Yes: Trachea Midline, Other Cardiovascular: Yes: Regular Rate and Rhythm Respiratory: Yes: Regular Gastrointestinal: Yes: WNL ...Rectal Exam: Yes: Deferred Renal/: Yes: WNL Musculoskeletal: Yes: WNL, Joint Swelling, Muscle Pain, Muscle Weakness Extremities: Yes: WNL Edema: No Psychiatric: Yes: Alert, Oriented Labs: CBC, BMP 06/14/19 06:00 06/14/19 06:00 Problem List - Problems (1) Controlled type 1 diabetes mellitus with diabetic neuropathy Code(s): E10.40 - TYPE 1 DIABETES MELLITUS WITH DIABETIC NEUROPATHY, UNSP (2) Cellulitis of abdominal wall Code(s): L03.311 - CELLULITIS OF ABDOMINAL WALL (3) Foreign bdy foot/toe-inf Code(s): FEA9753 - (4) Left shoulder pain Problems reviewed: Yes Code(s): M25.512 - PAIN IN LEFT SHOULDER Qualifiers: Chronicity: acute Qualified Code(s): M25.512 - Pain in left shoulder (5) Controlled diabetes mellitus type 1 with complications Code(s): E10.8 - TYPE 1 DIABETES MELLITUS WITH UNSPECIFIED COMPLICATIONS Assessment/Plan hypothyroidism david dm t1,ckd htn nephropathy hld diabetic dermopathy vesicular rash Abnormal Lab Results 06/13/19 06/14/19 06/14/19 12:45 06:00 06:00 Hgb 10.2 L Hct 31.3 L MCV 79.0 L Chloride 108 H 111 H Carbon Dioxide 20 L BUN 26.0 H 27.0 H Creatinine 2.0 H 2.1 H Random Glucose 61 L Alkaline Phosphatase 148 H Laboratory Results - last 24 hr 06/13/19 06/13/19 06/14/19 12:45 21:44 06:00 WBC 6.2 RBC 3.96 Hgb 10.2 L Hct 31.3 L MCV 79.0 L MCH 25.7 MCHC 32.6 RDW 15.5 Plt Count 285 MPV 9.0 Absolute Neuts (auto) 3.8 Neutrophils % 61.9 Lymphocytes % 26.8 Monocytes % 7.8 Eosinophils % 3.1 Basophils % 0.4 Sodium 141 Potassium 4.8 Chloride 108 H Carbon Dioxide 24 Anion Gap 9 BUN 26.0 H Creatinine 2.0 H Est GFR (CKD-EPI)AfAm 30.68 Est GFR (CKD-EPI)NonAf 26.47 POC Glucometer 132 Random Glucose 75 Calcium 8.8 Total Bilirubin 0.6 AST 15 ALT 15 Alkaline Phosphatase 148 H Total Protein 7.2 Albumin 3.9 06/14/19 06/14/19 06/14/19 06:00 06:39 07:07 WBC RBC Hgb Hct MCV MCH MCHC RDW Plt Count MPV Absolute Neuts (auto) Neutrophils % Lymphocytes % Monocytes % Eosinophils % Basophils % Sodium 142 Potassium 4.7 Chloride 111 H Carbon Dioxide 20 L Anion Gap 11 BUN 27.0 H Creatinine 2.1 H Est GFR (CKD-EPI)AfAm 28.92 Est GFR (CKD-EPI)NonAf 24.95 POC Glucometer 62 77 Random Glucose 61 L Calcium 8.7 Total Bilirubin AST ALT Alkaline Phosphatase Total Protein Albumin plan; synthroid 150mcg daily levemir 50 iu /dl bgm qid novolog scale continue bp med follow up op this saturday
--- NOTE | 2019-06-15 11:02 | EKG ---
Test Reason : Blood Pressure : / mmHG Vent. Rate : 062 BPM Atrial Rate : 062 BPM P-R Int : 196 ms QRS Dur : 076 ms QT Int : 418 ms P-R-T Axes : 020 000 -08 degrees QTc Int : 424 ms NORMAL SINUS RHYTHM NORMAL ECG WHEN COMPARED WITH ECG OF 24-DEC-2008 15:23, [place] INTERVAL HAS DECREASED Confirmed by NELLY GAUTAM MD ([id number]) on 06/15/2019 11:02:19 AM Referred By: QUYNH ROBERTSON Confirmed By:NELLY GAUTAM MD
== END 2019-06-14 12:30 | disposition home or self-care (01) | DRG 596 ==
LOC: FER 10:48 → FM/S 14:56
PROVIDERS: ADMIT Internal Medicine; ATTEND Nurse Practitioner Family
DX: B02.9 Zoster without complications (principal); I16.0 Hypertensive urgency; E11.22 Type 2 diabetes mellitus with diabetic chronic kidney disease; I12.9 Hypertensive chronic kidney disease with stage 1 through stage 4 chronic kidney disease, or unspecified chronic kidney disease; N18.9 Chronic kidney disease, unspecified; Z79.4 Long term (current) use of insulin; Z91.14 Patient's other noncompliance with medication regimen; E11.21 Type 2 diabetes mellitus with diabetic nephropathy; M25.512 Pain in left shoulder
CPT/HCPCS: 36415; 71045-TC-FY; 80048; 80053; 81003; 81015; 82962; 85025; 93005; 99285-25; J0131

== ENCOUNTER 2019-06-16 15:40 | Inpatient (IN) | payer OTHER ==
--- NOTE | 2019-06-16 17:16 | PDOC ---
History of Present Illness - General Chief Complaint: Blood Pressure Problem Stated Complaint: Blood Pressure Problem - History of Present Illness Initial Comments: The pt is a 59F w/ a history of HTN, shingles who presents for evaluation of HTN and MELGAR. The pt reports being seen in her PCP's office today with SBP > 200 and a gradual onset, b/l, throbbing MELGAR that is not exacerbated or alleviated by anything she can identify. She has not tried taking anything for pain. She reports taking all of her medications this AM (Atenolol, Losartan, and Nifedipine). She denies vision changes, chest pain, trouble breathing, N/V, abdominal pain, dysuria, hematuria, or changes in sensation. 06/16/19 17:58 Past History - Past Medical History Allergies/Adverse Reactions: Allergies Allergy/AdvReac Type Severity Reaction Status Date / Time No Known Allergies Allergy Verified 06/16/19 17:21 Home Medications: Ambulatory Orders Atenolol [Tenormin -] 50 mg PO DAILY 12/20/18 Insulin Lispro [Humalog] 0 unit SQ TID 12/20/18 Levothyroxine [Synthroid -] 100 mcg PO DAILY 12/20/18 Aspirin Coated [Ecotrin -] 81 mg PO DAILY 06/13/19 Gabapentin 300 mg PO BID 7 Days #14 capsule 06/13/19 Insulin Glargine,Hum.rec.anlog [Basaglar Kwikpen U-100] 50 unit SQ DAILY Nifedipine ER [Procardia XL -] 30 mg PO DAILY 30 Days #30 tab.er.24 06/13/19 Valacyclovir HCl [Valtrex] 1,000 mg PO TID 7 Days #21 tablet 06/13/19 Valsartan 320 mg PO DAILY 06/13/19 COPD: No Diabetes: Yes (INSULIN) HTN: Yes Hypercholesterolemia: Yes Thyroid Disease: Yes - Psycho Social/Smoking Cessation Hx Smoking Status: No Smoking History: Never smoked Number of Cigarettes Smoked Daily: 0 Hx Alcohol Use: No Drug/Substance Use Hx: No Substance Use Type: None Hx Substance Use Treatment: No Review of Systems - Review of Systems Able to Perform ROS?: Yes Comments:: GENERAL/CONSTITUTIONAL: No fever or chills. No weakness HEAD, EYES, EARS, NOSE AND THROAT: No change in vision. No change in hearing. No sore throat CARDIOVASCULAR: No chest pain or shortness of breath RESPIRATORY: Denies cough, hemoptysis GASTROINTESTINAL: No nausea, vomiting, diarrhea or constipation GENITOURINARY: No dysuria, frequency, or change in urination MUSCULOSKELETAL: No joint or muscle swelling or pain. No neck or back pain SKIN: No rash NEUROLOGIC: No vertigo, loss of consciousness, or change in strength/sensation ENDOCRINE: No increased thirst. No abnormal weight change HEMATOLOGIC/LYMPHATIC: No anemia, easy bleeding, or history of blood clots ALLERGIC/IMMUNOLOGIC: No hives or skin allergy 06/16/19 17:16 Is the patient limited Finnish proficient: No *Physical Exam - Vital Signs Last Vital Signs Temp Pulse Resp BP Pulse Ox 97.9 F 68 20 233/96 H 98 06/16/19 16:11 06/16/19 16:11 06/16/19 16:11 06/16/19 16:11 06/16/19 16:11 - Physical Exam Comments: GENERAL: Awake, alert, and oriented to person/place/time, in no acute distress HEAD: No signs of trauma, normocephalic, atraumatic EYES: PERRLA, EOMI, sclera anicteric, conjunctiva clear ENT: Hearing grossly normal, nares patent, oropharynx clear without exudates. Moist mucosa LUNGS: No distress, speaks in full sentences, clear to auscultation bilaterally HEART: Regular rate and rhythm, normal S1 and S2, no murmurs appreciated, peripheral pulses normal and equal bilaterally ABDOMEN: Soft, nontender, normoactive bowel sounds. No guarding, no rebound EXTREMITIES: Normal inspection, Normal range of motion, no edema. No clubbing or cyanosis NEUROLOGICAL: Cranial nerves II through XII grossly intact. Normal speech, normal gait, no focal sensorimotor deficits SKIN: Warm, Dry 06/16/19 17:16 ED Treatment Course - LABORATORY CBC & Chemistry Diagram: 06/16/19 18:00 06/16/19 18:00 Medical Decision Making - Medical Decision Making The pt is a 59F w/ a history of HTN and shingles who presents for evaluation of HTN emergency ED Course Labs sent ECG CT head Tylenol and Labetalol for symptomatic relief Pt discussed with Dr. Camargo Plan for admission for HTN emergency 06/16/19 18:01 Results pending Pt signed out to night team BP improved to SBP 180s from 230s 06/16/19 19:08 Discharge - Discharge Information Problems reviewed: Yes Clinical Impression/Diagnosis: Hypertensive emergency Condition: Good - Admission Yes - Follow up/Referral Referrals: Alec Camargo MD [Primary Care Provider] - - Patient Discharge Instructions - Post Discharge Activity
[2019-06-16] MEDS ORDERED: ACETAMINOPHEN 1000 MG/100 ML VIAL (NON FORMULARY) IVPB ONE (17:39)
[2019-06-16] MEDS ORDERED: SODIUM CHLORIDE 0.9% 500 ML INFUS.BAG IV ONE (17:39)
[2019-06-16] MEDS ORDERED: LABETALOL HCL 5 MG/1 ML (100MG/20 ML VIAL) IVPUSH ONE (17:43)
[2019-06-16] MEDS ORDERED: ACETAMINOPHEN INJECTION 100 ML IVPB ONE (18:06)
--- NOTE | 2019-06-16 18:23 | PDOC ---
Attending Attestation - Resident Resident Name: Carlos Manuel Alvarez - ED Attending Attestation I have performed the following: I have examined & evaluated the patient, The case was reviewed & discussed with the resident, I agree w/resident's findings & plan, Exceptions are as noted - Physicial Exam PE: 06/16/19 19:19 Vitals: Triage Vital signs reviewed General Appearance: No acute distress, well nourished well developed, Head: Atraumatic, Eyes: Pupils equal reactive round, extraocular movement intact Neck: Supple; no Nucal rigidity Chest Wall: Nontender Cardiac: Regular rate and rhythym, no murmurs, no rubs, no gallops, Lungs: Clear to auscultation bilateral, good air movement bilaterally, Abdomen: Soft, non distended, normal bowel sounds, non tender to palpation Extremities: Full range of motion to all extremities, no cyanosis, clubbing, or edema Skin: Warm and dry, no rashes or lesions, no rash, no petechiae Neuro: AOX3; cranial Nerves 2-12 grossly intact, strength intact to all extremities, sensation intact to all extremities, gait normal Psych: Normal mood, normal affect - Medical Decision Making 06/16/19 19:19 Patient presents to the emergency department with hypertensive urgency. Headache and grossly elevated blood pressure despite compliance with her triple therapy management at home IV labetalol initiated patient ordered for labs sent to CAT scan Patient to be admitted to hospitalist upon return patient to be admitted to hospitalist upon return of labs and imaging Dr. Escalante to follow up labs imaging and Dispo Heart Score/ECG Review - ECG Impressions Comment:: 06/16/19 19:20 EKG performed at 1828 demonstrates normal sinus rhythm first-degree AV block no ST elevations no T wave inversions Interpreted by me.
[2019-06-16] MEDS ORDERED: LABETALOL HCL 5 MG/1 ML (200MG/40ML VIAL) IVPB ONE (18:31)
[2019-06-16 18:32] LABS: BASO % 0.8 % (0-2.0); EOS % 2.8 % (0-4.5); HEMATOCRIT 32.9 % (32.4-45.2); HEMOGLOBIN 10.8 GM/dL (10.7-15.3); LYMPH % 37.5 % (8-40); MCH 25.6 pg (25.7-33.7); MCHC 32.9 g/dl (32.0-36.0); MEAN PLT VOLUME 8.7 fl (7.5-11.1); MONO % 8.5 % (3.8-10.2); NEUT % 50.4 % (42.8-82.8); PLATELET COUNT 323 K/MM3 (134-434); RBC 4.22 M/mm3 (3.60-5.2); RDW 16.6 % (11.6-15.6); WHITE BLOOD COUNT 10.3 K/mm3 (4.0-10.0)
[2019-06-16 19:01] LABS: ALBUMIN 3.7 g/dl (3.4-5.0); BILIRUBIN,TOTAL 0.2 mg/dL (0.2-1); BLOOD UREA NITROGEN 29.1 mg/dL (7-18); CREATININE 2.2 mg/dL (0.55-1.3); POTASSIUM 5.1 mmol/L (3.5-5.1)
[2019-06-16] MEDS ORDERED: DEXTROSE 5%-WATER 250 ML IVPB IVPB ONE (19:12)
[2019-06-16] MEDS: DEXTROSE 5%-WATER - 1,000 ML IV ONE ×2 (19:20→19:21)
[2019-06-16] MEDS ORDERED: hydrALAZINE HCL 10 MG TABLET PO ONE (20:40)
--- NOTE | 2019-06-16 21:01 | PDOC ---
*Physical Exam - Vital Signs Last Vital Signs Temp Pulse Resp BP Pulse Ox 97.5 F L 59 L 18 196/88 H 96 06/16/19 20:22 06/16/19 20:22 06/16/19 18:53 06/16/19 20:22 06/16/19 20:22 - Physical Exam Comments: Signed out pending Head CT read, labs, and 06/16/19 20:50 ED Treatment Course - LABORATORY CBC & Chemistry Diagram: 06/16/19 18:00 06/16/19 18:00 - ADDITIONAL ORDERS Additional order review: Laboratory Results 06/16/19 06/16/19 06/16/19 18:00 18:00 18:00 PTT (Actin FS) 38.4 H Sodium 141 Potassium 5.1 Chloride 112 H Carbon Dioxide 24 Anion Gap 5 L BUN 29.1 H Creatinine 2.2 H Est GFR (CKD-EPI)AfAm 27.34 Est GFR (CKD-EPI)NonAf 23.59 Random Glucose 47 L* Calcium 9.0 Total Bilirubin 0.2 AST 12 L ALT 20 Alkaline Phosphatase 165 H Troponin I < 0.02 Total Protein 7.0 Albumin 3.7 06/16/19 18:00 RBC 4.22 MCV 78.0 L MCHC 32.9 RDW 16.6 H MPV 8.7 Neutrophils % 50.4 Lymphocytes % 37.5 D Monocytes % 8.5 Eosinophils % 2.8 Basophils % 0.8 - Medications Given in the ED: ED Medications Discontinued Medications Generic Name Dose Route Start Last Admin Trade Name Freq PRN Reason Stop Dose Admin Acetaminophen 1,000 mg 06/16/19 17:39 06/16/19 18:06 Ofirmev Injection - IVPB 06/16/19 17:40 1,000 mg ONCE ONE Administration Dextrose 1 bag 06/16/19 19:12 06/16/19 19:21 D5w - IVPB 06/16/19 19:13 1 bag ONCE ONE Administration Labetalol HCl 10 mg 06/16/19 17:43 06/16/19 18:35 Normodyne Injection - IVPUSH 06/16/19 17:44 10 mg ONCE ONE Administration Sodium Chloride 1,000 ml 06/16/19 17:39 06/16/19 18:26 Normal Saline - IV 06/16/19 17:40 1,000 ml ONCE ONE Administration Medical Decision Making - Medical Decision Making 59 year old with hypertensive emergency and supposed history of shingles ( unclear, but lesions are crusted over and would be non-contagious regardless). Patient given hydrazine 25 PO for continued HTN of 196/88. Discussed with hospitalist CHEYANNE Johnson and will admit under Bennyinos. 06/16/19 21:17 Discharge - Discharge Information Problems reviewed: Yes Clinical Impression/Diagnosis: Hypertensive emergency Condition: Good - Admission Yes - Follow up/Referral Referrals: Alec Camargo MD [Primary Care Provider] - - Patient Discharge Instructions - Post Discharge Activity
[2019-06-16] MEDS ORDERED: hydrALAZINE HCL 25 MG TABLET (FP) PO ONE (21:03)
[2019-06-16] MEDS ORDERED: hydrALAZINE HCL 25 MG TABLET (FP) ONE (21:39)
--- NOTE | 2019-06-16 22:26 | HP ---
Admitting History and Physical - Primary Care Physician PCP: Dr. Pak - Admission Chief Complaint: headache, high BP History of Present Illness: 59-year-old female with a history of hypertension and chronic kidney disease recently discharged from [facility] on 06/14 for HTN and ?shingles, arrived to ED today for elevated BP and headache. Patient reports seeing PCP's today, in office noted with SBP > 200 and a gradual onset, b/l, throbbing MELGAR. Patient states she is compliant with her HTN medicine (Atenolol, Losartan, and Nifedipine). Patient denies vision changes, chest pain, trouble breathing, N/V, abdominal pain, dysuria, hematuria, or changes in sensation. Rash on left lateral neck ?history of shingles (unclear, lesions are crusted over and non-contagious) no discharge noted, denies any pain to site, will d/c isolation, as patient completed 3 days of valtrex. History Source: Patient, Family Member Limitations to Obtaining History: No Limitations - Past Medical History Cardiovascular: Yes: HTN Renal/: Yes: Renal Inusuff Endocrine: Yes: Diabetes Mellitus, Hypothyroidism - Past Surgical History Past Surgical History: Yes: None - Smoking History Smoking history: Never smoked Aproximately how many cigarettes per day: 0 - Alcohol/Substance Use Hx Alcohol Use: No History of Substance Use: reports: None - Social History Usual Living Arrangement: Yes: With Child ADL: Independent History of Recent Travel: No Home Medications - Allergies Allergies/Adverse Reactions: Allergies Allergy/AdvReac Type Severity Reaction Status Date / Time No Known Allergies Allergy Verified 06/16/19 17:21 - Home Medications Home Medications: Ambulatory Orders Atenolol [Tenormin -] 50 mg PO DAILY 12/20/18 Insulin Lispro [Humalog] 0 unit SQ TID 12/20/18 Levothyroxine [Synthroid -] 100 mcg PO DAILY 12/20/18 Aspirin Coated [Ecotrin -] 81 mg PO DAILY 06/13/19 Gabapentin 300 mg PO BID 7 Days #14 capsule 06/13/19 Insulin Glargine,Hum.rec.anlog [Basaglar Kwikpen U-100] 50 unit SQ DAILY Nifedipine ER [Procardia XL -] 30 mg PO DAILY 30 Days #30 tab.er.24 11/02/19 Valacyclovir HCl [Valtrex] 1,000 mg PO TID 7 Days #21 tablet 06/13/19 Valsartan 320 mg PO DAILY 06/13/19 Family Medical History Family History: Denies Review of Systems - Review of Systems Constitutional: reports: No Symptoms Eyes: reports: No Symptoms HENT: reports: Other (headache) Neck: reports: No Symptoms Cardiovascular: reports: No Symptoms Respiratory: reports: No Symptoms Gastrointestinal: reports: No Symptoms Genitourinary: reports: No Symptoms Musculoskeletal: reports: No Symptoms Integumentary: reports: No Symptoms Neurological: reports: No Symptoms Endocrine: reports: No Symptoms Hematology/Lymphatic: reports: No Symptoms Psychiatric: reports: No Symptoms Physical Examination Vital Signs: Vital Signs Temperature 97.5 F L 06/16/19 20:22 Pulse Rate 61 06/16/19 22:14 Respiratory Rate 18 06/16/19 22:14 Blood Pressure 188/96 H 06/16/19 22:14 O2 Sat by Pulse Oximetry (%) 96 06/16/19 22:13 Constitutional: Yes: No Distress, Calm Eyes: Yes: Conjunctiva Clear, EOM Intact HENT: Yes: Atraumatic, Normocephalic Neck: Yes: Supple, Trachea Midline Cardiovascular: Yes: Regular Rate and Rhythm Respiratory: Yes: Regular, CTA Bilaterally Gastrointestinal: Yes: Normal Bowel Sounds, Soft Renal/: Yes: WNL Musculoskeletal: Yes: WNL Extremities: Yes: WNL Edema: No Peripheral Pulses WNL: Yes Neurological: Yes: Alert, Oriented Labs: CBC, BMP 06/16/19 18:00 06/16/19 18:00 Imaging - Results Chest X-ray: Report Reviewed (No acute chest pathology) Cat Scan: Report Reviewed (CT head: no acute intracranial pathology) EKG: Report Reviewed (EKG:normal sinus rhythm first-degree AV block no ST elevations no T wave inversions - no changes from prior EKG) Problem List - Problems (1) Headache Code(s): R51 - HEADACHE (2) Hypertensive emergency Code(s): I16.1 - HYPERTENSIVE EMERGENCY (3) Diabetes Code(s): E11.9 - TYPE 2 DIABETES MELLITUS WITHOUT COMPLICATIONS (4) Hypothyroidism Code(s): E03.9 - HYPOTHYROIDISM, UNSPECIFIED Assessment/Plan 59-year-old female with a history of hypertension, DM, Hypothyroidism and chronic kidney disease recently discharged from [facility] on 06/14 for HTN and shingles, arrived to ED today for elevated BP and headache. # Hypertensive urgency - EKG:normal sinus rhythm first-degree AV block no ST elevations no T wave inversions - no changes from prior EKG - CT head: no acute intracranial pathology - s/p IV labetalol and hydralazine po in ER - will monitor BP closely - Nifedipine ER 30 mg PO DAILY - Atenolol 50 mg PO DAILY - follow up cardiology #CKD with acute TRISTIAN - given 1 L NS in ED - cre 2.2 now - monitor renal function - avoid nephro toxins #DM - noted with bessie glucose 47 - given D5w x1 - FS BIDAC - novolog Insulin sliding scale - follow hgA1c - Diabetic diet # Hypothyroidism -Levothyroxine 100 mcg PO DAILY -follow tsh VTE: Heparin SQ Diet- Low salt/ low concentration sugar diet Visit type - Emergency Visit Emergency Visit: Yes ED Registration Date: 06/16/19 Care time: The patient presented to the Emergency Department on the above date and was hospitalized for further evaluation of their emergent condition. - New Patient This patient is new to me today: Yes Date on this admission: 06/16/19 - Critical Care Critical Care patient: No
[2019-06-16 23:43] VITALS: BMI 30.2
--- NOTE | 2019-06-16 23:45 | CONSULT ---
Consult Consult Specialty:: endocrine Reason for Consultation:: uncontrolled hypertension - History of Present Illness Chief Complaint: headache and pain left shoulder History of Present Illness: 59F w/ a history of DMT1, HTN, shingles who was seen today in office after recent dc from [facility],found to have bp > 200systolic with symptoms.b/l, throbbing MELGAR that is not exacerbated or alleviated by anything she can identify. She has not tried taking anything for pain. She had taken her bp meds yet pain from the shingles as well as throbing headache was unbearable.she denied nausea ,vomiting or vision loss. - Past Medical History Cardio/Vascular: Yes: HTN Renal/: Yes: Renal Inusuff Endocrine: Yes: Diabetes Mellitus, Hypothyroidism - Past Surgical History Past Surgical History: Yes: None - Alcohol/Substance Use Hx Alcohol Use: No History of Substance Use: reports: None - Smoking History Smoking history: Never smoked Aproximately how many cigarettes per day: 0 - Social History ADL: Independent History of Recent Travel: No Home Medications - Allergies Allergies/Adverse Reactions: Allergies Allergy/AdvReac Type Severity Reaction Status Date / Time No Known Allergies Allergy Verified 06/16/19 17:21 - Home Medications Home Medications: Ambulatory Orders Atenolol [Tenormin -] 50 mg PO DAILY 12/20/18 Insulin Lispro [Humalog] 0 unit SQ TID 12/20/18 Levothyroxine [Synthroid -] 100 mcg PO DAILY 12/20/18 Aspirin Coated [Ecotrin -] 81 mg PO DAILY 06/13/19 Gabapentin 300 mg PO BID 7 Days #14 capsule 06/13/19 Insulin Glargine,Hum.rec.anlog [Basaglar Kwikpen U-100] 50 unit SQ DAILY Nifedipine ER [Procardia XL -] 30 mg PO DAILY 30 Days #30 tab.er.24 06/13/19 Valacyclovir HCl [Valtrex] 1,000 mg PO TID 7 Days #21 tablet 06/13/19 Valsartan 320 mg PO DAILY 06/13/19 Review of Systems - Review of Systems Constitutional: reports: Lethargy, Weakness Eyes: reports: No Symptoms HENT: reports: No Symptoms Neck: reports: No Symptoms Cardiovascular: reports: Shortness of Breath Respiratory: reports: Exercise Intolerance, SOB on Exertion Gastrointestinal: reports: Bloating, Nausea Genitourinary: reports: No Symptoms Breasts: reports: No Symptoms Reported Musculoskeletal: reports: Muscle Cramps, Muscle Weakness Endocrine: reports: Unexplained Weight Gain Physical Exam Vital Signs: Vital Signs Temperature 97.5 F L 06/16/19 20:22 Pulse Rate 61 06/16/19 22:14 Respiratory Rate 18 06/16/19 22:14 Blood Pressure 188/96 H 06/16/19 22:14 O2 Sat by Pulse Oximetry (%) 96 06/16/19 22:13 Constitutional: Yes: Anxious Eyes: Yes: EOM Intact HENT: Yes: Normocephalic Neck: Yes: Trachea Midline Cardiovascular: Yes: Regular Rate and Rhythm Respiratory: Yes: CTA Bilaterally Gastrointestinal: Yes: Normal Bowel Sounds ...Rectal Exam: Yes: Deferred Renal/: Yes: WNL Musculoskeletal: Yes: Back Pain, Muscle Pain, Muscle Weakness Extremities: Yes: Delayed Capillary Refill Edema: No Neurological: Yes: Alert, Oriented Labs: CBC, BMP 06/16/19 18:00 06/16/19 18:00 Problem List - Problems (1) Shingles (herpes zoster) polyneuropathy Problems reviewed: Yes Code(s): B02.23 - POSTHERPETIC POLYNEUROPATHY (2) Diabetes Code(s): E11.9 - TYPE 2 DIABETES MELLITUS WITHOUT COMPLICATIONS (3) Headache Code(s): R51 - HEADACHE (4) Hypothyroidism Code(s): E03.9 - HYPOTHYROIDISM, UNSPECIFIED (5) Cellulitis of abdominal wall Code(s): L03.311 - CELLULITIS OF ABDOMINAL WALL (6) Controlled diabetes mellitus type 1 with complications Code(s): E10.8 - TYPE 1 DIABETES MELLITUS WITH UNSPECIFIED COMPLICATIONS (7) Controlled type 1 diabetes mellitus with diabetic neuropathy Code(s): E10.40 - TYPE 1 DIABETES MELLITUS WITH DIABETIC NEUROPATHY, UNSP Assessment/Plan Current Active Problems herpes zoster neuropathy Diabetes (Acute) Headache (Acute) Hypertensive emergency (Acute) Hypothyroidism (Acute) Abnormal Lab Results 06/16/19 06/16/19 06/16/19 18:00 18:00 18:00 WBC 10.3 H MCV 78.0 L MCH 25.6 L RDW 16.6 H PTT (Actin FS) 38.4 H Chloride 112 H Anion Gap 5 L BUN 29.1 H Creatinine 2.2 H Random Glucose 47 L* AST 12 L Alkaline Phosphatase 165 H C-Reactive Protein 1.0 H Laboratory Results - last 24 hr 06/16/19 06/16/19 06/16/19 18:00 18:00 18:00 WBC 10.3 H RBC 4.22 Hgb 10.8 Hct 32.9 MCV 78.0 L MCH 25.6 L MCHC 32.9 RDW 16.6 H Plt Count 323 D MPV 8.7 Absolute Neuts (auto) 5.2 Neutrophils % 50.4 Lymphocytes % 37.5 D Monocytes % 8.5 Eosinophils % 2.8 Basophils % 0.8 Nucleated RBC % 0 PTT (Actin FS) 38.4 H Sodium 141 Potassium 5.1 Chloride 112 H Carbon Dioxide 24 Anion Gap 5 L BUN 29.1 H Creatinine 2.2 H Est GFR (CKD-EPI)AfAm 27.34 Est GFR (CKD-EPI)NonAf 23.59 POC Glucometer Random Glucose 47 L* Calcium 9.0 Total Bilirubin 0.2 AST 12 L ALT 20 Alkaline Phosphatase 165 H Troponin I C-Reactive Protein 1.0 H Total Protein 7.0 Albumin 3.7 Free T4 06/16/19 06/16/19 18:00 22:23 WBC RBC Hgb Hct MCV MCH MCHC RDW Plt Count MPV Absolute Neuts (auto) Neutrophils % Lymphocytes % Monocytes % Eosinophils % Basophils % Nucleated RBC % PTT (Actin FS) Sodium Potassium Chloride Carbon Dioxide Anion Gap BUN Creatinine Est GFR (CKD-EPI)AfAm Est GFR (CKD-EPI)NonAf POC Glucometer 156 Random Glucose Calcium Total Bilirubin AST ALT Alkaline Phosphatase Troponin I < 0.02 C-Reactive Protein Total Protein Albumin Free T4 1.03 plan: synthroid 125mcg bgm qid novolog scale levemir 30units q am renal consult cardiology consult ck tsh,hba1c 24 hr urine vma catecholamine, am cortisol acth
[2019-06-17 00:19] LABS: ERYTHROCYTE SEDIMENTATION RATE 42 mm/hr (0-30)
[2019-06-17] MEDS ORDERED: hydrALAZINE HCL 25 MG TABLET (FP) PO ONE (00:37)
[2019-06-17 02:02] LABS: PLATELET ESTIMATE ADEQUATE
[2019-06-17] MEDS: ACETAMINOPHEN 325 MG TABLET (FP) PO PRN (05:51)
[2019-06-17] MEDS: INSULIN SLIDING SCALE (NOVOLOG) 1 VIAL SQ SCH ×4 (06:35→21:24)
[2019-06-17] MEDS: INSULIN (LEVEMIR) 100 UNITS/ML UNITS SQ SCH (06:54)
[2019-06-17 06:55] LABS: HEMATOCRIT 29.8 % (32.4-45.2); HEMOGLOBIN 9.8 GM/dL (10.7-15.3); MCH 25.5 pg (25.7-33.7); MCHC 33.1 g/dl (32.0-36.0); MEAN CELL VOLUME 77.2 fl (80-96); MEAN PLT VOLUME 8.4 fl (7.5-11.1); PLATELET COUNT 281 K/MM3 (134-434); RBC 3.85 M/mm3 (3.60-5.2); RDW 16.5 % (11.6-15.6); WHITE BLOOD COUNT 7.6 K/mm3 (4.0-10.0)
[2019-06-17] MEDS ORDERED: INSULIN SLIDING SCALE (NOVOLOG) 1 VIAL SQ SCH (07:00)
[2019-06-17] MEDS: LEVOTHYROXINE NA 100 MCG TABLET (FP) PO SCH (07:08)
[2019-06-17 07:12] LABS: BLOOD UREA NITROGEN 23.2 mg/dL (7-18); CALCIUM 8.5 mg/dL (8.5-10.1); CREATININE 1.8 mg/dL (0.55-1.3); POTASSIUM 4.9 mmol/L (3.5-5.1)
--- NOTE | 2019-06-17 08:47 | PN ---
Progress Note, Physician - Current Medication List Current Medications: Active Medications Acetaminophen (Tylenol -) 650 mg PO Q6H PRN PRN Reason: PAIN LEVEL 1-5 Last Admin: 06/17/19 05:51 Dose: 650 mg Atenolol (Tenormin -) 50 mg PO DAILY [facility] Heparin Sodium (Porcine) (Heparin -) 5,000 unit SQ BID [facility] Insulin Aspart (Novolog Vial Sliding Scale -) 1 vial SQ ACHS [facility]; Protocol Last Admin: 06/17/19 06:35 Dose: Not Given Insulin Detemir (Levemir Vial) 30 units SQ AM [facility] Last Admin: 06/17/19 06:54 Dose: 30 units Levothyroxine Sodium (Synthroid -) 100 mcg PO DAILY@0700 [facility] Last Admin: 06/17/19 07:08 Dose: 100 mcg Nifedipine (Procardia Xl -) 30 mg PO DAILY [facility] - Objective Vital Signs: Vital Signs Temperature 98.1 F 06/17/19 06:00 Pulse Rate 62 06/17/19 08:19 Respiratory Rate 18 06/17/19 06:00 Blood Pressure 175/86 H 06/17/19 08:19 O2 Sat by Pulse Oximetry (%) 97 06/16/19 23:28 Cardiovascular: Yes: Regular Rate and Rhythm Respiratory: Yes: Regular, CTA Bilaterally Gastrointestinal: Yes: Normal Bowel Sounds, Soft. No: Tenderness Labs: CBC, BMP 06/17/19 06:00 06/17/19 06:00 Problem List - Problems (1) Hypertensive emergency Assessment/Plan: - EKG:normal sinus rhythm first-degree AV block no ST elevations no T wave inversions - no changes from prior EKG - CT head: no acute intracranial pathology - Nifedipine ER 30 mg PO DAILY - Atenolol 50 mg PO DAILY - Hydralazine 25 tid - Hold ARB due to tristian - follow up cardiology Code(s): I16.1 - HYPERTENSIVE EMERGENCY (2) Anemia Assessment/Plan: -W/u Ordered -GI consult Code(s): D64.9 - ANEMIA, UNSPECIFIED (3) Diabetes Assessment/Plan: - noted with bessie glucose 47 - given D5w x1 - FS BIDAC - novolog Insulin sliding scale - hgA1c 6.2 - Diabetic diet - Endo Code(s): E11.9 - TYPE 2 DIABETES MELLITUS WITHOUT COMPLICATIONS (4) Hypothyroidism Assessment/Plan: -Levothyroxine 100 mcg PO DAILY Code(s): E03.9 - HYPOTHYROIDISM, UNSPECIFIED (5) Shingles (herpes zoster) polyneuropathy Code(s): B02.23 - POSTHERPETIC POLYNEUROPATHY (6) TRISTIAN (acute kidney injury) Assessment/Plan: - given 1 L NS in ED - cre improving - monitor renal function - avoid nephro toxins - hold arb - Renal consult Code(s): N17.9 - ACUTE KIDNEY FAILURE, UNSPECIFIED
[2019-06-17] MEDS: ATENOLOL 50 MG TABLET (FP) PO SCH (09:34)
[2019-06-17] MEDS: HEPARIN NA (PORCINE) 5,000 UNITS/ML 1ML VIAL SQ SCH ×2 (09:34→21:23)
[2019-06-17] MEDS ORDERED: NIFEdipine E.R. 30 MG TABLET (FP) PO SCH (10:00)
[2019-06-17] MEDS ORDERED: VALSARTAN 160 MG TABLET (UD) PO SCH ×2 (10:00→18:14)
[2019-06-17] MEDS ORDERED: GABAPENTIN 300 MG CAPSULE (FP) PO SCH (10:00)
--- NOTE | 2019-06-17 10:39 | EKG ---
Test Reason : Blood Pressure : / mmHG Vent. Rate : 068 BPM Atrial Rate : 068 BPM P-R Int : 218 ms QRS Dur : 074 ms QT Int : 426 ms P-R-T Axes : 028 -04 -04 degrees QTc Int : 452 ms SINUS RHYTHM WITH 1ST DEGREE A-V BLOCK POSSIBLE ANTERIOR INFARCT , AGE UNDETERMINED ABNORMAL ECG WHEN COMPARED WITH ECG OF 13-JUN-2019 13:56, NO SIGNIFICANT CHANGE WAS FOUND Confirmed by HENOK MUÑOZ, SHRAVAN ([id number]) on 06/17/2019 10:38:53 AM Referred By: Confirmed By:SHRAVAN WHITING MD
[2019-06-17] MEDS: ASPIRIN COATED 81 MG TABLET.EC PO SCH (10:42)
[2019-06-17] MEDS: hydrALAZINE HCL 25 MG TABLET (FP) PO SCH ×3 (12:31→21:22)
--- NOTE | 2019-06-17 12:34 | CONSULT ---
Consult - text type - Consultation Consultation Note: Renal consult for CKD and uncontrolled hypertension This is a 59 year old woman with history of CKD stage 3/4, difficult to control hypertension, DM type 1 who presents with uncontrolled hypertension and suspected shingles rash on her left side of her neck. Pt was last seen in our office last October. BP at that time was 170's/80's. Pt reports compliance with medication. Reports severe pain with shingles rash, especially at night. Denies any chest pain, palpitations, headache or vision changes. Making urine normally. No leg swelling. Cr in October was 2.3. PMhx: as above Allergies: NKDA Family hx: NC Social Hx: No T/A/D ROS: as per HPI, all other pertinent ros negative Home Medications Medication Instructions Recorded Atenolol [Tenormin -] 50 mg PO DAILY 12/20/18 Insulin Lispro [Humalog] 0 unit SQ TID 12/20/18 Levothyroxine [Synthroid -] 100 mcg PO DAILY 12/20/18 Aspirin Coated [Ecotrin -] 81 mg PO DAILY 06/13/19 Gabapentin 300 mg PO BID 7 Days #14 capsule 06/13/19 Insulin Glargine,Hum.rec.anlog 50 unit SQ DAILY 06/13/19 [Basaglar Kwikpen U-100] Nifedipine ER [Procardia XL -] 30 mg PO DAILY 30 Days #30 06/13/19 tab.er.24 Valacyclovir HCl [Valtrex] 1,000 mg PO TID 7 Days #21 tablet 06/13/19 Valsartan 320 mg PO DAILY 06/13/19 Vital Signs Temperature 98.1 F 06/17/19 06:00 Pulse Rate 62 06/17/19 08:19 Respiratory Rate 18 06/17/19 06:00 Blood Pressure 183/76 H 06/17/19 12:00 O2 Sat by Pulse Oximetry (%) 97 06/16/19 23:28 Intake & Output 06/14/19 06/15/19 06/16/19 06/17/19 23:59 23:59 23:59 23:59 Intake Total 570 Balance 570 Weight 74.843 kg NAD awake and alert neck supple rash on left side of neck RRR CTA soft NT/ND no LE edema CBC, BMP 06/17/19 06:00 06/17/19 06:00 Current Medications Acetaminophen (Tylenol -) 650 mg PO Q6H PRN PRN Reason: PAIN LEVEL 1-5 Last Admin: 06/17/19 05:51 Dose: 650 mg Aspirin (Ecotrin -) 81 mg PO DAILY [facility] Last Admin: 06/17/19 10:42 Dose: 81 mg Atenolol (Tenormin -) 50 mg PO DAILY [facility] Last Admin: 06/17/19 09:34 Dose: 50 mg Gabapentin (Neurontin -) 300 mg PO BID [facility] Last Admin: 06/17/19 10:42 Dose: 300 mg Heparin Sodium (Porcine) (Heparin -) 5,000 unit SQ BID [facility] Last Admin: 06/17/19 09:34 Dose: 5,000 unit Hydralazine HCl (Apresoline -) 25 mg PO TID [facility] Last Admin: 06/17/19 12:31 Dose: 25 mg Insulin Aspart (Novolog Vial Sliding Scale -) 1 vial SQ [facility]; Protocol Last Admin: 06/17/19 11:50 Dose: Not Given Insulin Detemir (Levemir Vial) 30 units SQ AM [facility] Last Admin: 06/17/19 06:54 Dose: 30 units Levothyroxine Sodium (Synthroid -) 100 mcg PO DAILY@0700 [facility] Last Admin: 06/17/19 07:08 Dose: 100 mcg Nifedipine (Procardia Xl -) 30 mg PO BID [facility] Valsartan (Diovan -) 320 mg PO DAILY [facility] 59 year old woman with history of CKD stage 3/4, difficult to control hypertension, DM type 1 who presents with uncontrolled hypertension and suspected shingles rash on her left side of her neck. 1. CKD stage 3/4 2. Uncontrolled hypertension/hypertensive urgency 3. Shingles rash 4. Pain 5. DM type 1 Renal function stable as compared to previous recorded values Check UA and urine protein to creatinine ratio BP remains elvated but pt does not have any acute symptoms Goal BP today 160-170 systolic and 90 diastolic Continue Valsartan 320nmg daily, Hydralzine 25mg TID, Atenolol 50mg Daily Increase Nifedpine to 30mg BID Low salt diet Pain control as per primary team Thank you Jose Wall DO
--- NOTE | 2019-06-17 16:27 | CON.CARD ---
Consult Consult Specialty:: Cardiology Reason for Consultation:: Cardiology Consult - History of Present Illness Chief Complaint: Head Ache and elevated BP History of Present Illness: This is a 59 year old female with a PMH of HTN, chronic kidney disease, and had the shingles. She was seen at the [facility] on 06/14/19 for HTN and a headache. She saw her PCP today and her BP was > 200 mmHg systolic. Meds at home include: Atenolol, Losartan, and Nifedipine, but she ran out of Nifedipine. Current BP 149/76 mmHg Home Medications Medication Instructions Recorded Atenolol [Tenormin -] 50 mg PO DAILY 12/20/18 Insulin Lispro [Humalog] 0 unit SQ TID 12/20/18 Levothyroxine [Synthroid -] 100 mcg PO DAILY 12/20/18 Aspirin Coated [Ecotrin -] 81 mg PO DAILY 06/13/19 Gabapentin 300 mg PO BID 7 Days #14 capsule 06/13/19 Insulin Glargine,Hum.rec.anlog 50 unit SQ DAILY 06/13/19 [Basaglar Kwikpen U-100] Nifedipine ER [Procardia XL -] 30 mg PO DAILY 30 Days #30 06/13/19 tab.er.24 Valacyclovir HCl [Valtrex] 1,000 mg PO TID 7 Days #21 tablet 06/13/19 Valsartan 320 mg PO DAILY 06/13/19 - Past Medical History Cardio/Vascular: Yes: HTN Renal/: Yes: Renal Inusuff Endocrine: Yes: Diabetes Mellitus, Hypothyroidism - Past Surgical History Past Surgical History: Yes: None - Alcohol/Substance Use Hx Alcohol Use: No History of Substance Use: reports: None - Smoking History Smoking history: Never smoked Have you smoked in the past 12 months: No Aproximately how many cigarettes per day: 0 - Social History ADL: Independent History of Recent Travel: No Home Medications - Allergies Allergies/Adverse Reactions: Allergies Allergy/AdvReac Type Severity Reaction Status Date / Time No Known Allergies Allergy Verified 06/16/19 17:21 - Home Medications Home Medications: Ambulatory Orders Atenolol [Tenormin -] 50 mg PO DAILY 12/20/18 Insulin Lispro [Humalog] 0 unit SQ TID 12/20/18 Levothyroxine [Synthroid -] 100 mcg PO DAILY 12/20/18 Aspirin Coated [Ecotrin -] 81 mg PO DAILY 06/13/19 Gabapentin 300 mg PO BID 7 Days #14 capsule 06/13/19 Insulin Glargine,Hum.rec.anlog [Basaglar [place] U-100] 50 unit SQ DAILY Nifedipine ER [Procardia XL -] 30 mg PO DAILY 30 Days #30 tab.er.24 06/13/19 Valacyclovir HCl [Valtrex] 1,000 mg PO TID 7 Days #21 tablet 06/13/19 Valsartan 320 mg PO DAILY 06/13/19 Vital Signs: Vital Signs Temperature 98.2 F 06/17/19 14:23 Pulse Rate 64 06/17/19 14:23 Respiratory Rate 15 06/17/19 14:23 Blood Pressure 149/76 06/17/19 14:23 O2 Sat by Pulse Oximetry (%) 97 06/16/19 23:28 Constitutional: Yes: Well Nourished HENT: Yes: WNL Neck: Yes: WNL Respiratory: Yes: CTA Bilaterally Gastrointestinal: Yes: Soft Cardiovascular: Yes: Regular Rate and Rhythm (No MRHG) Extremities: Yes: WNL Edema: No Integumentary: Yes: Rash (Left) Neurological: Yes: Alert, Oriented - Other Data Labs, Other Data: CBC, BMP 06/17/19 06:00 06/17/19 06:00 Troponin, BNP 06/16/19 18:00 Troponin I < 0.02 Troponin, BNP 06/16/19 18:00 Troponin I < 0.02 Assessment/Plan 59 year old female with a PMH of HTN, chronic kidney disease, and had the shingles. She was seen at the [facility] on 06/14/19 for HTN and a headache. She saw her PCP today and her BP was > 200 mmHg systolic. Meds at home include: Atenolol, Losartan, and Nifedipine, but she ran out of Nifedipine. EKG NSR with 1 st AVB, normal axis, PRWP across the anterior precordial leads, and NSSTTW changes. HTN BP now 149/76 mmHg Continue: Atenolol (Tenormin -) 50 mg PO DAILY JT Nifedipine (Procardia Xl -) 30 mg PO BID JT Valsartan (Diovan -) 320 mg PO DAILY JT Provide adequate pain control for the shigles. If needed for BP management, can add Hydralizine 25 mg PO TID
[2019-06-17] MEDS ORDERED: VALSARTAN 160 MG TABLET (UD) PO ONE (19:03)
--- NOTE | 2019-06-17 19:58 | PN ---
Progress Note, Physician Chief Complaint: pain on the left shoulder - Current Medication List Current Medications: Active Medications Acetaminophen (Tylenol -) 650 mg PO Q6H PRN PRN Reason: PAIN LEVEL 1-5 Last Admin: 06/17/19 05:51 Dose: 650 mg Aspirin (Ecotrin -) 81 mg PO DAILY [facility] Last Admin: 06/17/19 10:42 Dose: 81 mg Atenolol (Tenormin -) 50 mg PO DAILY [facility] Last Admin: 06/17/19 09:34 Dose: 50 mg Gabapentin (Neurontin -) 600 mg PO BID [facility] Heparin Sodium (Porcine) (Heparin -) 5,000 unit SQ BID [facility] Last Admin: 06/17/19 09:34 Dose: 5,000 unit Hydralazine HCl (Apresoline -) 25 mg PO TID [facility] Last Admin: 06/17/19 14:32 Dose: Not Given Hydrocortisone (Anusol 2.5% Hc Cream -) 1 applic TP BID [facility] Insulin Aspart (Novolog Vial Sliding Scale -) 1 vial SQ ACHS [facility]; Protocol Last Admin: 06/17/19 16:49 Dose: Not Given Insulin Detemir (Levemir Vial) 30 units SQ AM [facility] Last Admin: 06/17/19 06:54 Dose: 30 units Levothyroxine Sodium (Synthroid -) 100 mcg PO DAILY@0700 [facility] Last Admin: 06/17/19 07:08 Dose: 100 mcg Melatonin (Melatonin) 10 mg PO HS [facility] Nifedipine (Procardia Xl -) 30 mg PO BID [facility] Valsartan (Diovan -) 320 mg PO DAILY [facility] - Objective Vital Signs: Vital Signs Temperature 98.2 F 06/17/19 18:00 Pulse Rate 66 06/17/19 18:00 Respiratory Rate 18 06/17/19 18:00 Blood Pressure 190/87 H 06/17/19 18:00 O2 Sat by Pulse Oximetry (%) 98 06/17/19 09:00 Constitutional: Yes: Anxious Eyes: Yes: EOM Intact HENT: Yes: Normocephalic Neck: Yes: Trachea Midline, Lymphadenopathy, Other Cardiovascular: Yes: Regular Rate and Rhythm Respiratory: Yes: Cough Gastrointestinal: Yes: Normal Bowel Sounds ...Rectal Exam: Yes: Deferred Genitourinary: Yes: WNL Edema: No Neurological: Yes: Alert, Oriented, Tingling, Weakness Labs: CBC, BMP 06/17/19 06:00 06/17/19 06:00 Problem List - Problems (1) Shingles (herpes zoster) polyneuropathy Code(s): B02.23 - POSTHERPETIC POLYNEUROPATHY (2) Diabetes Code(s): E11.9 - TYPE 2 DIABETES MELLITUS WITHOUT COMPLICATIONS (3) Headache Code(s): R51 - HEADACHE (4) Hypothyroidism Code(s): E03.9 - HYPOTHYROIDISM, UNSPECIFIED (5) Cellulitis of abdominal wall Code(s): L03.311 - CELLULITIS OF ABDOMINAL WALL (6) Controlled diabetes mellitus type 1 with complications Code(s): E10.8 - TYPE 1 DIABETES MELLITUS WITH UNSPECIFIED COMPLICATIONS (7) Controlled type 1 diabetes mellitus with diabetic neuropathy Code(s): E10.40 - TYPE 1 DIABETES MELLITUS WITH DIABETIC NEUROPATHY, UNSP Assessment/Plan Current Active Problems TRISTIAN (acute kidney injury) (Acute) Anemia (Acute) Diabetes (Acute) Headache (Acute) Hypertensive emergency (Acute) Hypothyroidism (Acute) Shingles (herpes zoster) polyneuropathy (Acute) Abnormal Lab Results 06/16/19 06/16/19 06/17/19 18:00 18:00 06:00 WBC 10.3 H Hgb 9.8 L Hct 29.8 L MCV 78.0 L 77.2 L MCH 25.6 L 25.5 L RDW 16.6 H 16.5 H ESR 42 H Chloride 112 H Anion Gap 5 L BUN 29.1 H Creatinine 2.2 H Random Glucose 47 L* Hemoglobin A1c % Iron Iron Saturation AST 12 L Alkaline Phosphatase 165 H C-Reactive Protein 1.0 H 06/17/19 06/17/19 06:00 06:00 WBC Hgb Hct MCV MCH RDW ESR Chloride 113 H Anion Gap 4 L BUN 23.2 H Creatinine 1.8 H Random Glucose 126 H Hemoglobin A1c % 6.4 H Iron 46 L Iron Saturation 17 L AST Alkaline Phosphatase C-Reactive Protein Laboratory Tests 06/17/19 06/17/19 06:00 06:00 Random Glucose 126 H Hemoglobin A1c % 6.4 H plan: hydrocortizone cream to rash levemir 30 iu day synthroid 100mcg day
[2019-06-17] MEDS: GABAPENTIN 300 MG CAPSULE (FP) PO SCH (21:23)
[2019-06-17] MEDS: NIFEdipine E.R. 30 MG TABLET (FP) PO SCH (21:24)
[2019-06-17] MEDS: HYDROCORTISONE 2.5% TOPICAL CREAM 30 GM TUBE TP SCH (22:14)
[2019-06-18] MEDS: MELATONIN 5 MG TABLETS PO SCH ×2 (01:56→21:10)
[2019-06-18] MEDS: ACETAMINOPHEN 325 MG TABLET (FP) PO PRN ×2 (01:57→09:06)
[2019-06-18] MEDS: INSULIN (LEVEMIR) 100 UNITS/ML UNITS SQ SCH (05:59)
[2019-06-18] MEDS: INSULIN SLIDING SCALE (NOVOLOG) 1 VIAL SQ SCH ×4 (05:59→21:17)
[2019-06-18] MEDS: hydrALAZINE HCL 25 MG TABLET (FP) PO SCH ×3 (06:06→21:08)
[2019-06-18] MEDS: LEVOTHYROXINE NA 100 MCG TABLET (FP) PO SCH (06:06)
[2019-06-18] MEDS: HEPARIN NA (PORCINE) 5,000 UNITS/ML 1ML VIAL SQ SCH ×2 (09:05→21:17)
[2019-06-18] MEDS: VALSARTAN 160 MG TABLET (UD) PO SCH (09:06)
[2019-06-18] MEDS: ASPIRIN COATED 81 MG TABLET.EC PO SCH (09:07)
[2019-06-18] MEDS: ATENOLOL 50 MG TABLET (FP) PO SCH (09:07)
[2019-06-18] MEDS: GABAPENTIN 300 MG CAPSULE (FP) PO SCH ×2 (09:07→21:08)
[2019-06-18] MEDS: NIFEdipine E.R. 30 MG TABLET (FP) PO SCH ×2 (09:11→21:08)
[2019-06-18] MEDS: HYDROCORTISONE 2.5% TOPICAL CREAM 30 GM TUBE TP SCH ×2 (09:12→21:09)
[2019-06-18 13:27] LABS: CALCIUM 8.8 mg/dL (8.5-10.1); CREATININE 2.1 mg/dL (0.55-1.3); POTASSIUM 5.2 mmol/L (3.5-5.1)
--- NOTE | 2019-06-18 13:28 | PN ---
Progress Note (short form) - Note Progress Note: Renal follow up for CKD and hypertension Seen and examined at the bedside no acute complaints neck discomfort is improved no MELGAR, chest pain, abd pain, fever or chills Vital Signs Temperature 98.2 F 06/18/19 13:19 Pulse Rate 59 L 06/18/19 13:19 Respiratory Rate 16 06/18/19 13:19 Blood Pressure 157/74 06/18/19 13:19 O2 Sat by Pulse Oximetry (%) 98 06/18/19 10:00 Intake & Output 06/15/19 06/16/19 06/17/19 06/18/19 23:59 23:59 23:59 23:59 Intake Total 1530 740 Balance 1530 740 Weight 74.843 kg NAD rash on left side of neck RRR CTA soft NT/ND no LE edema CBC, BMP 06/17/19 06:00 Current Medications Acetaminophen (Tylenol -) 650 mg PO Q6H PRN PRN Reason: PAIN LEVEL 1-5 Last Admin: 06/18/19 09:06 Dose: 650 mg Aspirin (Ecotrin -) 81 mg PO DAILY [facility] Last Admin: 06/18/19 09:07 Dose: 81 mg Atenolol (Tenormin -) 50 mg PO DAILY [facility] Last Admin: 06/18/19 09:07 Dose: 50 mg Gabapentin (Neurontin -) 600 mg PO BID [facility] Last Admin: 06/18/19 09:07 Dose: 600 mg Heparin Sodium (Porcine) (Heparin -) 5,000 unit SQ BID [facility] Last Admin: 06/18/19 09:05 Dose: 5,000 unit Hydralazine HCl (Apresoline -) 25 mg PO TID [facility] Last Admin: 06/18/19 06:06 Dose: 25 mg Hydrocortisone (Anusol 2.5% Hc Cream -) 1 applic TP BID [facility] Last Admin: 06/18/19 09:12 Dose: 1 applic Insulin Aspart (Novolog Vial Sliding Scale -) 1 vial SQ ACHS [facility]; Protocol Last Admin: 06/18/19 10:58 Dose: 2 units Insulin Detemir (Levemir Vial) 30 units SQ AM [facility] Last Admin: 06/18/19 05:59 Dose: Not Given Levothyroxine Sodium (Synthroid -) 100 mcg PO DAILY@0700 [facility] Last Admin: 06/18/19 06:06 Dose: 100 mcg Melatonin (Melatonin) 10 mg PO HS [facility] Last Admin: 06/18/19 01:56 Dose: 10 mg Nifedipine (Procardia Xl -) 30 mg PO BID [facility] Last Admin: 06/18/19 09:11 Dose: 30 mg Valsartan (Diovan -) 320 mg PO DAILY [facility] Last Admin: 06/18/19 09:06 Dose: 320 mg 59 year old woman with history of CKD stage 3/4, difficult to control hypertension, DM type 1 who presents with uncontrolled hypertension and suspected shingles rash on her left side of her neck. 1. CKD stage 3/4 2. Uncontrolled hypertension/hypertensive urgency 3. Shingles rash 4. Pain 5. DM type 1 Todays chemistry is pending BP is improved with current medications Continue Valsartan 320nmg daily, Hydralzine 25mg TID, Atenolol 50mg Daily, Nifedpine ER 30mg BID Studies for secondary hypertension ordered, results pending If renal function stable on repeat labs pt can be discharged with outpatient follow up from renal perspective. Thank you Jose Wall DO
--- NOTE | 2019-06-18 14:13 | PN ---
Progress Note, Physician Chief Complaint: patient seen and examined BP is better - Current Medication List Current Medications: Active Medications Acetaminophen (Tylenol -) 650 mg PO Q6H PRN PRN Reason: PAIN LEVEL 1-5 Last Admin: 06/18/19 09:06 Dose: 650 mg Aspirin (Ecotrin -) 81 mg PO DAILY [facility] Last Admin: 06/18/19 09:07 Dose: 81 mg Atenolol (Tenormin -) 50 mg PO DAILY [facility] Last Admin: 06/18/19 09:07 Dose: 50 mg Gabapentin (Neurontin -) 600 mg PO BID [facility] Last Admin: 06/18/19 09:07 Dose: 600 mg Heparin Sodium (Porcine) (Heparin -) 5,000 unit SQ BID [facility] Last Admin: 06/18/19 09:05 Dose: 5,000 unit Hydralazine HCl (Apresoline -) 25 mg PO TID [facility] Last Admin: 06/18/19 13:28 Dose: 25 mg Hydrocortisone (Anusol 2.5% Hc Cream -) 1 applic TP BID [facility] Last Admin: 06/18/19 09:12 Dose: 1 applic Insulin Aspart (Novolog Vial Sliding Scale -) 1 vial SQ ACHS [facility]; Protocol Last Admin: 06/18/19 10:58 Dose: 2 units Insulin Detemir (Levemir Vial) 30 units SQ AM [facility] Last Admin: 06/18/19 05:59 Dose: Not Given Levothyroxine Sodium (Synthroid -) 100 mcg PO DAILY@0700 [facility] Last Admin: 06/18/19 06:06 Dose: 100 mcg Melatonin (Melatonin) 10 mg PO HS [facility] Last Admin: 06/18/19 01:56 Dose: 10 mg Nifedipine (Procardia Xl -) 30 mg PO BID [facility] Last Admin: 06/18/19 09:11 Dose: 30 mg Valsartan (Diovan -) 320 mg PO DAILY [facility] Last Admin: 06/18/19 09:06 Dose: 320 mg - Objective Vital Signs: Vital Signs Temperature 98.2 F 06/18/19 13:19 Pulse Rate 59 L 06/18/19 13:19 Respiratory Rate 16 06/18/19 13:19 Blood Pressure 157/74 06/18/19 13:19 O2 Sat by Pulse Oximetry (%) 98 06/18/19 10:00 Constitutional: Yes: Calm Cardiovascular: Yes: Regular Rate and Rhythm, S1, S2 Respiratory: Yes: CTA Bilaterally Gastrointestinal: Yes: Normal Bowel Sounds, Soft Labs: CBC, BMP 06/17/19 06:00 06/18/19 12:50 Problem List - Problems (1) Anemia Assessment/Plan: monitor h/h iron panel Code(s): D64.9 - ANEMIA, UNSPECIFIED (2) Diabetes Assessment/Plan: levemir 30un its Code(s): E11.9 - TYPE 2 DIABETES MELLITUS WITHOUT COMPLICATIONS (3) Hypertensive emergency Assessment/Plan: hydralazine and diovan Code(s): I16.1 - HYPERTENSIVE EMERGENCY (4) Hypothyroidism Assessment/Plan: synthroid Code(s): E03.9 - HYPOTHYROIDISM, UNSPECIFIED
--- NOTE | 2019-06-18 15:48 | PN ---
Progress Note, Physician Chief Complaint: No new complaints History of Present Illness: This is a 59 year old female with a PMH of HTN, chronic kidney disease, and had the shingles. She was seen at the [place] [facility] ED on 06/14/19 for HTN and a headache. She saw her PCP today and her BP was > 200 mmHg systolic. Meds at home include: Atenolol, Losartan, and Nifedipine, but she ran out of Nifedipine. BP's have improved Home Medications Medication Instructions Recorded Atenolol [Tenormin -] 50 mg PO DAILY 12/20/18 Insulin Lispro [Humalog] 0 unit SQ TID 12/20/18 Levothyroxine [Synthroid -] 100 mcg PO DAILY 12/20/18 Aspirin Coated [Ecotrin -] 81 mg PO DAILY 06/13/19 Gabapentin 300 mg PO BID 7 Days #14 capsule 06/13/19 Insulin Glargine,Hum.rec.anlog 50 unit SQ DAILY 06/13/19 [Basaglar Kwikpen U-100] Nifedipine ER [Procardia XL -] 30 mg PO DAILY 30 Days #30 06/13/19 tab.er.24 Valacyclovir HCl [Valtrex] 1,000 mg PO TID 7 Days #21 tablet 06/13/19 Valsartan 320 mg PO DAILY 06/13/19 - Current Medication List Current Medications: Active Medications Acetaminophen (Tylenol -) 650 mg PO Q6H PRN PRN Reason: PAIN LEVEL 1-5 Last Admin: 06/18/19 09:06 Dose: 650 mg Aspirin (Ecotrin -) 81 mg PO DAILY [facility] Last Admin: 06/18/19 09:07 Dose: 81 mg Atenolol (Tenormin -) 50 mg PO DAILY [facility] Last Admin: 06/18/19 09:07 Dose: 50 mg Gabapentin (Neurontin -) 600 mg PO BID [facility] Last Admin: 06/18/19 09:07 Dose: 600 mg Heparin Sodium (Porcine) (Heparin -) 5,000 unit SQ BID [facility] Last Admin: 06/18/19 09:05 Dose: 5,000 unit Hydralazine HCl (Apresoline -) 25 mg PO TID [facility] Last Admin: 06/18/19 13:28 Dose: 25 mg Hydrocortisone (Anusol 2.5% Hc Cream -) 1 applic TP BID [facility] Last Admin: 06/18/19 09:12 Dose: 1 applic Insulin Aspart (Novolog Vial Sliding Scale -) 1 vial SQ ACHS [facility]; Protocol Last Admin: 06/18/19 10:58 Dose: 2 units Insulin Detemir (Levemir Vial) 30 units SQ AM [facility] Last Admin: 06/18/19 05:59 Dose: Not Given Levothyroxine Sodium (Synthroid -) 100 mcg PO DAILY@0700 [facility] Last Admin: 06/18/19 06:06 Dose: 100 mcg Melatonin (Melatonin) 10 mg PO HS [facility] Last Admin: 06/18/19 01:56 Dose: 10 mg Nifedipine (Procardia Xl -) 30 mg PO BID [facility] Last Admin: 06/18/19 09:11 Dose: 30 mg Valsartan (Diovan -) 320 mg PO DAILY [facility] Last Admin: 06/18/19 09:06 Dose: 320 mg - Objective Vital Signs: Vital Signs Temperature 98.2 F 06/18/19 13:19 Pulse Rate 59 L 06/18/19 13:19 Respiratory Rate 16 06/18/19 13:19 Blood Pressure 157/74 06/18/19 13:19 O2 Sat by Pulse Oximetry (%) 98 06/18/19 10:00 Constitutional: Yes: Well Nourished Eyes: Yes: WNL Cardiovascular: Yes: Regular Rate and Rhythm, S1, S2 Respiratory: Yes: CTA Bilaterally Gastrointestinal: Yes: Soft Extremities: Yes: WNL Edema: No Neurological: Yes: Alert, Oriented Labs: CBC, BMP 06/17/19 06:00 06/18/19 12:50 Assessment/Plan 59 year old female with a PMH of HTN, chronic kidney disease, and had the shingles. She was seen at the [place] ED on 06/14/19 for HTN and a headache. She saw her PCP today and her BP was > 200 mmHg systolic. Meds at home include: Atenolol, Losartan, and Nifedipine, but she ran out of Nifedipine. EKG NSR with 1 st AVB, normal axis, PRWP across the anterior precordial leads, and NSSTTW changes. HTN BP improving Continue: Atenolol (Tenormin -) 50 mg PO DAILY [facility] Nifedipine (Procardia Xl -) 30 mg PO BID JT Valsartan (Diovan -) 320 mg PO DAILY [facility] Provide adequate pain control for the shigles. If needed for BP management, can add Hydralizine 25 mg PO TID Active Medications Acetaminophen (Tylenol -) 650 mg PO Q6H PRN PRN Reason: PAIN LEVEL 1-5 Last Admin: 06/18/19 09:06 Dose: 650 mg Aspirin (Ecotrin -) 81 mg PO DAILY [facility] Last Admin: 06/18/19 09:07 Dose: 81 mg Atenolol (Tenormin -) 50 mg PO DAILY [facility] Last Admin: 06/18/19 09:07 Dose: 50 mg Gabapentin (Neurontin -) 600 mg PO BID [facility] Last Admin: 06/18/19 09:07 Dose: 600 mg Heparin Sodium (Porcine) (Heparin -) 5,000 unit SQ BID [facility] Last Admin: 06/18/19 09:05 Dose: 5,000 unit Hydralazine HCl (Apresoline -) 25 mg PO TID [facility] Last Admin: 06/18/19 13:28 Dose: 25 mg Hydrocortisone (Anusol 2.5% Hc Cream -) 1 applic TP BID [facility] Last Admin: 06/18/19 09:12 Dose: 1 applic Insulin Aspart (Novolog Vial Sliding Scale -) 1 vial SQ ACHS [facility]; Protocol Last Admin: 06/18/19 10:58 Dose: 2 units Insulin Detemir (Levemir Vial) 30 units SQ AM [facility] Last Admin: 06/18/19 05:59 Dose: Not Given Levothyroxine Sodium (Synthroid -) 100 mcg PO DAILY@0700 [facility] Last Admin: 06/18/19 06:06 Dose: 100 mcg Melatonin (Melatonin) 10 mg PO HS [facility] Last Admin: 06/18/19 01:56 Dose: 10 mg Nifedipine (Procardia Xl -) 30 mg PO BID [facility] Last Admin: 06/18/19 09:11 Dose: 30 mg Valsartan (Diovan -) 320 mg PO DAILY [facility] Last Admin: 06/18/19 09:06 Dose: 320 mg Call prn
[2019-06-18] MEDS ORDERED: oxyCODONE HCL 5 MG TABLET PO PRN (18:41)
--- NOTE | 2019-06-18 23:16 | PN ---
Progress Note, Physician Chief Complaint: severe pain from zoster rash - Current Medication List Current Medications: Active Medications Acetaminophen (Tylenol -) 650 mg PO Q6H PRN PRN Reason: PAIN LEVEL 1-5 Last Admin: 06/18/19 09:06 Dose: 650 mg Aspirin (Ecotrin -) 81 mg PO DAILY [facility] Last Admin: 06/18/19 09:07 Dose: 81 mg Atenolol (Tenormin -) 50 mg PO DAILY [facility] Last Admin: 06/18/19 09:07 Dose: 50 mg Gabapentin (Neurontin -) 600 mg PO BID [facility] Last Admin: 06/18/19 21:08 Dose: 600 mg Heparin Sodium (Porcine) (Heparin -) 5,000 unit SQ BID [facility] Last Admin: 06/18/19 21:17 Dose: 5,000 unit Hydralazine HCl (Apresoline -) 25 mg PO TID [facility] Last Admin: 06/18/19 21:08 Dose: 25 mg Hydrocortisone (Anusol 2.5% Hc Cream -) 1 applic TP BID [facility] Last Admin: 06/18/19 21:09 Dose: 1 applic Insulin Aspart (Novolog Vial Sliding Scale -) 1 vial SQ ACHS [facility]; Protocol Last Admin: 06/18/19 21:17 Dose: Not Given Insulin Detemir (Levemir Vial) 30 units SQ AM [facility] Last Admin: 06/18/19 05:59 Dose: Not Given Levothyroxine Sodium (Synthroid -) 100 mcg PO DAILY@0700 [facility] Last Admin: 06/18/19 06:06 Dose: 100 mcg Melatonin (Melatonin) 10 mg PO HS [facility] Last Admin: 06/18/19 21:10 Dose: Not Given Nifedipine (Procardia Xl -) 30 mg PO BID [facility] Last Admin: 06/18/19 21:08 Dose: 30 mg Oxycodone HCl (Roxicodone -) 5 mg PO Q6H PRN PRN Reason: PAIN LEVEL 7 - 10 Last Admin: 06/18/19 21:08 Dose: 5 mg Valsartan (Diovan -) 320 mg PO DAILY [facility] Last Admin: 06/18/19 09:06 Dose: 320 mg - Objective Vital Signs: Vital Signs Temperature 98.0 F 06/18/19 18:00 Pulse Rate 71 06/18/19 18:00 Respiratory Rate 18 06/18/19 18:00 Blood Pressure 138/82 06/18/19 18:00 O2 Sat by Pulse Oximetry (%) 98 06/18/19 10:00 Constitutional: Yes: Anxious Eyes: Yes: EOM Intact HENT: Yes: Normocephalic Neck: Yes: Trachea Midline, Lymphadenopathy, Other Cardiovascular: Yes: Regular Rate and Rhythm Respiratory: Yes: CTA Bilaterally Gastrointestinal: Yes: Normal Bowel Sounds ...Rectal Exam: Yes: Deferred Musculoskeletal: Yes: Back Pain Extremities: Yes: WNL Edema: No Neurological: Yes: Alert, Oriented, Numbness, Tingling Labs: CBC, BMP 06/17/19 06:00 06/18/19 12:50 Problem List - Problems (1) Shingles (herpes zoster) polyneuropathy Problems reviewed: Yes Code(s): B02.23 - POSTHERPETIC POLYNEUROPATHY (2) Diabetes Code(s): E11.9 - TYPE 2 DIABETES MELLITUS WITHOUT COMPLICATIONS Qualifiers: Diabetes mellitus type: type 1 Diabetes mellitus complication status: with diabetic arthropathy (3) Headache Code(s): R51 - HEADACHE (4) Hypothyroidism Code(s): E03.9 - HYPOTHYROIDISM, UNSPECIFIED (5) Cellulitis of abdominal wall Code(s): L03.311 - CELLULITIS OF ABDOMINAL WALL (6) Controlled diabetes mellitus type 1 with complications Code(s): E10.8 - TYPE 1 DIABETES MELLITUS WITH UNSPECIFIED COMPLICATIONS (7) Controlled type 1 diabetes mellitus with diabetic neuropathy Code(s): E10.40 - TYPE 1 DIABETES MELLITUS WITH DIABETIC NEUROPATHY, UNSP Assessment/Plan Current Active Problems TRISTIAN (acute kidney injury) (Acute) Anemia (Acute) Diabetes (Acute) Headache (Acute) Hypertensive emergency (Acute) Hypothyroidism (Acute) Shingles (herpes zoster) polyneuropathy (Acute) Abnormal Lab Results 06/18/19 12:50 Potassium 5.2 H Chloride 108 H Anion Gap 7 L BUN 30.0 H Creatinine 2.1 H Random Glucose 186 H Laboratory Results - last 24 hr 06/17/19 06/18/19 06/18/19 06:00 05:24 10:56 Sodium Potassium Chloride Carbon Dioxide Anion Gap BUN Creatinine Est GFR (CKD-EPI)AfAm Est GFR (CKD-EPI)NonAf POC Glucometer 114 175 Random Glucose Calcium ACTH 44.3 Urine Creatinine Cancelled Ur Creatinine 24 Hour Cancelled Ur VMA Concentration Cancelled 06/18/19 06/18/19 06/18/19 12:50 17:05 21:15 Sodium 139 Potassium 5.2 H Chloride 108 H Carbon Dioxide 23 Anion Gap 7 L BUN 30.0 H Creatinine 2.1 H Est GFR (CKD-EPI)AfAm 28.92 Est GFR (CKD-EPI)NonAf 24.95 POC Glucometer 199 110 Random Glucose 186 H Calcium 8.8 ACTH Urine Creatinine Ur Creatinine 24 Hour Ur VMA Concentration plan: Current Medications Generic Name Dose Route Start Last Admin Trade Name Freq PRN Reason Stop Dose Admin Acetaminophen 650 mg 06/16/19 22:47 06/18/19 09:06 Tylenol - PO 650 mg Q6H PRN Administration PAIN LEVEL 1-5 Aspirin 81 mg 06/17/19 10:00 06/18/19 09:07 Ecotrin - PO 81 mg DAILY JT Administration Atenolol 50 mg 06/17/19 10:00 06/18/19 09:07 Tenormin - PO 50 mg DAILY JT Administration Gabapentin 600 mg 06/17/19 22:00 06/18/19 21:08 Neurontin - PO 600 mg BID JT Administration Heparin Sodium (Porcine) 5,000 unit 06/17/19 10:00 06/18/19 21:17 Heparin - SQ 5,000 unit BID JT Administration Hydralazine HCl 25 mg 06/17/19 14:00 06/18/19 21:08 Apresoline - PO 25 mg TID JT Administration Hydrocortisone 1 applic 06/17/19 22:00 06/18/19 21:09 Anusol 2.5% Hc Cream - TP 1 applic BID JT Administration Insulin Aspart 1 vial 06/17/19 07:00 06/18/19 21:17 Novolog Vial Sliding Scale - SQ Not Given ACHS [facility] Protocol Insulin Detemir 30 units 06/17/19 07:00 06/18/19 05:59 Levemir Vial SQ Not Given AM [facility] Levothyroxine Sodium 100 mcg 06/17/19 07:00 06/18/19 06:06 Synthroid - PO 100 mcg DAILY@0700 JT Administration Melatonin 10 mg 06/17/19 22:00 06/18/19 21:10 Melatonin PO Not Given HS JT Nifedipine 30 mg 06/17/19 22:00 06/18/19 21:08 Procardia Xl - PO 30 mg BID JT Administration Oxycodone HCl 5 mg 06/18/19 18:41 06/18/19 21:08 Roxicodone - PO 5 mg Q6H PRN Administration PAIN LEVEL 7 - 10 Valsartan 320 mg 06/18/19 10:00 06/18/19 09:06 Diovan - PO 320 mg DAILY JT Administration
[2019-06-19] MEDS: ACETAMINOPHEN 325 MG TABLET (FP) PO PRN (01:56)
[2019-06-19] MEDS: INSULIN (LEVEMIR) 100 UNITS/ML UNITS SQ SCH (06:37)
[2019-06-19] MEDS: hydrALAZINE HCL 25 MG TABLET (FP) PO SCH ×2 (06:37→13:18)
[2019-06-19] MEDS: LEVOTHYROXINE NA 100 MCG TABLET (FP) PO SCH (06:37)
[2019-06-19] MEDS: INSULIN SLIDING SCALE (NOVOLOG) 1 VIAL SQ SCH ×3 (06:38→16:46)
[2019-06-19 07:34] LABS: IRON SERUM 45 ug/dL (50-175); TOTAL IRON BINDING CAPACITY 265 ug/dL (250-450)
[2019-06-19] MEDS: HEPARIN NA (PORCINE) 5,000 UNITS/ML 1ML VIAL SQ SCH (09:01)
[2019-06-19] MEDS: VALSARTAN 160 MG TABLET (UD) PO SCH (09:02)
[2019-06-19] MEDS: ATENOLOL 50 MG TABLET (FP) PO SCH (09:02)
[2019-06-19] MEDS: GABAPENTIN 300 MG CAPSULE (FP) PO SCH (09:02)
[2019-06-19] MEDS: ASPIRIN COATED 81 MG TABLET.EC PO SCH (09:02)
[2019-06-19] MEDS: NIFEdipine E.R. 30 MG TABLET (FP) PO SCH (09:03)
[2019-06-19] MEDS: HYDROCORTISONE 2.5% TOPICAL CREAM 30 GM TUBE TP SCH (09:09)
[2019-06-19 11:40] VITALS: PULSE 60
[2019-06-19] MEDS ORDERED: MINERAL OIL ENEMA 133 ML ENEMA PR ONE (11:57)
--- NOTE | 2019-06-19 12:04 | DS ---
Physical Examination Vital Signs: Vital Signs Temperature 97.7 F 06/19/19 10:00 Pulse Rate 60 06/19/19 10:00 Respiratory Rate 18 06/19/19 10:00 Blood Pressure 141/71 06/19/19 10:00 O2 Sat by Pulse Oximetry (%) 98 06/19/19 10:00 Constitutional: Yes: Calm Neck: Yes: Trachea Midline Cardiovascular: Yes: Regular Rate and Rhythm, S1, S2 Respiratory: Yes: CTA Bilaterally Gastrointestinal: Yes: Normal Bowel Sounds, Soft Neurological: Yes: Alert, Oriented Labs: CBC, BMP 06/17/19 06:00 06/18/19 12:50 Discharge Summary Problems reviewed: Yes Reason For Visit: HYPERTENSIVE EMERGENCY Current Active Problems TRISTIAN (acute kidney injury) (Acute) Anemia (Acute) Diabetes (Acute) Headache (Acute) Hypertensive emergency (Acute) Hypothyroidism (Acute) Shingles (herpes zoster) polyneuropathy (Acute) Hospital Course: 59-year-old female with a history of hypertension and chronic kidney disease recently discharged from [facility] on 06/14 for HTN and ?shingles, arrived to ED today for elevated BP and headache. Patient reports seeing PCP's today, in office noted with SBP > 200 and a gradual onset, b/l, throbbing MELGAR. Patient states she is compliant with her HTN medicine (Atenolol, Losartan, and Nifedipine). Patient denies vision changes, chest pain, trouble breathing, N/V, abdominal pain, dysuria, hematuria, or changes in sensation. Rash on left lateral neck ?history of shingles (unclear, lesions are crusted over and non-contagious) no discharge noted, denies any pain to site, will d/c isolation, as patient completed 3 days of valtrex. patient started on hydralazine and BP improved, continue diovan and procardia xl. Condition: Good - Instructions Referrals: Alec Camargo MD [Primary Care Provider] - - Home Medications Comprehensive Discharge Medication List: Ambulatory Orders Atenolol [Tenormin -] 50 mg PO DAILY 12/20/18 Insulin Lispro [Humalog] 0 unit SQ TID 12/20/18 Levothyroxine [Synthroid -] 100 mcg PO DAILY 12/20/18 Aspirin Coated [Ecotrin -] 81 mg PO DAILY 06/13/19 Gabapentin 300 mg PO BID 7 Days #14 capsule 06/13/19 Insulin Glargine,Hum.rec.anlog [Basaglar Kwikpen U-100] 50 unit SQ DAILY Nifedipine ER [Procardia XL -] 30 mg PO DAILY 30 Days #30 tab.er.24 06/13/19 Valacyclovir HCl [Valtrex] 1,000 mg PO TID 7 Days #21 tablet 06/13/19 Valsartan 320 mg PO DAILY 06/13/19
--- NOTE | 2019-06-19 14:19 | CON.GI ---
Consult Consult Specialty:: Gastroenterology Referred by:: Dr. Pak Reason for Consultation:: Anemia - History of Present Illness Chief Complaint: Hypertension History of Present Illness: 59F is admitted for malignant hypertension in the setting of a painful outbreak of herpes zoster on the top of the left shoulder. She tells me that she has chronic anemia but is not aware of the etiology. She stopped menstruating many years ago. She had an EGD remotely but cannot recall the findings. She has never had a colonoscopy. Her father of colon cancer age age 79. She has chronic constipation for which she has been taking Linzess. She denies any overt G bleeding or narrowed stools. She denies weight loss. She denies abdominal pain, early satiety and dysphagia. - History Source History Provided By: Patient Limitations to Obtaining History: No Limitations - Past Medical History Cardio/Vascular: Yes: HTN Gastrointestinal: Yes: Constipation Renal/: Yes: Renal Inusuff Infectious Disease: Yes: Other (herpes zoster currently) Endocrine: Yes: Diabetes Mellitus, Hypothyroidism Additional Medical History: Cataracts - Past Surgical History Past Surgical History: Yes: (x 2), Upper Endoscopy Additional Surgical History: laparoscopic lysis of adhesions for an SBO - Alcohol/Substance Use Hx Alcohol Use: Yes (rare) History of Substance Use: reports: None - Smoking History Smoking history: Never smoked Have you smoked in the past 12 months: No Aproximately how many cigarettes per day: 0 - Social History Usual Living Arrangement: Alone ADL: Independent 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 Place of : [facility] History of Recent Travel: No Home Medications - Allergies Allergies/Adverse Reactions: Allergies Allergy/AdvReac Type Severity Reaction Status Date / Time No Known Allergies Allergy Verified 06/16/19 17:21 - Home Medications Home Medications: Ambulatory Orders Atenolol [Tenormin -] 50 mg PO DAILY 12/20/18 Insulin Lispro [Humalog] 0 unit SQ TID 12/20/18 Levothyroxine [Synthroid -] 100 mcg PO DAILY 12/20/18 Aspirin Coated [Ecotrin -] 81 mg PO DAILY 06/13/19 Gabapentin 300 mg PO BID 7 Days #14 capsule 06/13/19 Nifedipine ER [Procardia XL -] 30 mg PO DAILY 30 Days #30 tab.er.24 06/13/19 Valsartan 320 mg PO DAILY 06/13/19 Insulin (Levemir) [Levemir Vial] 30 units SQ AM #100 units 06/19/19 hydrALAZINE HCL [Apresoline -] 25 mg PO TID #30 tablet 06/19/19 Family Medical History Family Hx Cancer: Father (had colon cancer) Family Hx Cardiac Disorders: Father Family Hx Respiratory Disorders: Mother ( 64 of COPD), Father ( 79 of COPD), Brother ( of asthma) Review of Systems - Review of Systems Constitutional: reports: Malaise Eyes: reports: No Symptoms HENT: reports: No Symptoms Neck: reports: No Symptoms Cardiovascular: reports: No Symptoms Respiratory: reports: No Symptoms Gastrointestinal: reports: Constipation Integumentary: reports: Other (herpes zoster top of left shoulder) Physical Exam-GI Vital Signs: Vital Signs Temperature 97.7 F 06/19/19 10:00 Pulse Rate 60 06/19/19 10:00 Respiratory Rate 18 06/19/19 10:00 Blood Pressure 141/71 06/19/19 10:00 O2 Sat by Pulse Oximetry (%) 98 06/19/19 10:00 CBC,CMP WBC 7.6 K/mm3 (4.0-10.0) 06/17/19 06:00 RBC 3.85 M/mm3 (3.60-5.2) 06/17/19 06:00 Hgb 9.8 GM/dL (10.7-15.3) L 06/17/19 06:00 Hct 29.8 % (32.4-45.2) L 06/17/19 06:00 MCV 77.2 fl (80-96) L 06/17/19 06:00 MCH 25.5 pg (25.7-33.7) L 06/17/19 06:00 MCHC 33.1 g/dl (32.0-36.0) 06/17/19 06:00 RDW 16.5 % (11.6-15.6) H 06/17/19 06:00 Plt Count 281 K/MM3 (134-434) 06/17/19 06:00 MPV 8.4 fl (7.5-11.1) 06/17/19 06:00 Absolute Neuts (auto) 5.2 K/mm3 (1.5-8.0) 06/16/19 18:00 Neutrophils % 50.4 % (42.8-82.8) 06/16/19 18:00 Lymphocytes % 37.5 % (8-40) D 06/16/19 18:00 Monocytes % 8.5 % (3.8-10.2) 06/16/19 18:00 Eosinophils % 2.8 % (0-4.5) 06/16/19 18:00 Basophils % 0.8 % (0-2.0) 06/16/19 18:00 Nucleated RBC % 0 % (0-0) 06/16/19 18:00 Platelet Estimate Adequate 06/16/19 18:00 Platelet Comment No clotting detected 06/16/19 18:00 ESR 42 mm/hr (0-30) H 06/16/19 18:00 Sodium 139 mmol/L (136-145) 06/18/19 12:50 Potassium 5.2 mmol/L (3.5-5.1) H 06/18/19 12:50 Chloride 108 mmol/L (98-107) H 06/18/19 12:50 Carbon Dioxide 23 mmol/L (21-32) 06/18/19 12:50 Anion Gap 7 MMOL/L (8-16) L 06/18/19 12:50 BUN 30.0 mg/dL (7-18) H 06/18/19 12:50 Creatinine 2.1 mg/dL (0.55-1.3) H 06/18/19 12:50 Est GFR (CKD-EPI)AfAm 28.92 06/18/19 12:50 Est GFR (CKD-EPI)NonAf 24.95 06/18/19 12:50 POC Glucometer 192 UNITS (80-120) 06/19/19 11:13 Random Glucose 186 mg/dL (74-106) H 06/18/19 12:50 Hemoglobin A1c % 6.4 % (4.2-6.3) H 06/17/19 06:00 Calcium 8.8 mg/dL (8.5-10.1) 06/18/19 12:50 Iron 45 ug/dL (50-175) L 06/19/19 05:55 TIBC 265 ug/dL (250-450) 06/19/19 05:55 Iron Saturation 16 % (17.5-39) L 06/19/19 05:55 Unsaturated IBC 220 ug/dL (200-275) 06/19/19 05:55 Ferritin 54.0 ng/ml (8-388) 06/17/19 06:00 Total Bilirubin 0.2 mg/dL (0.2-1) 06/16/19 18:00 AST 12 U/L (15-37) L 06/16/19 18:00 ALT 20 U/L (13-61) 06/16/19 18:00 Alkaline Phosphatase 165 U/L (45-117) H 06/16/19 18:00 Troponin I < 0.02 ng/ml (0.00-0.05) 06/16/19 18:00 C-Reactive Protein 1.0 MG/DL (0.00-0.3) H 06/16/19 18:00 Total Protein 7.0 g/dl (6.4-8.2) 06/16/19 18:00 Albumin 3.7 g/dl (3.4-5.0) 06/16/19 18:00 TSH 0.62 uIU/ml (0.358-3.74) 06/17/19 06:00 Free T4 1.03 ng/dl (0.76-1.46) 06/16/19 18:00 Cortisol AM Sample 18.4 ug/dL (6.2-19.4) 06/17/19 06:00 ACTH 44.3 PG/ML (7.2-63.3) 06/17/19 06:00 Current Medications Generic Name Dose Route Start Last Admin Trade Name Camachoq PRN Reason Stop Dose Admin Acetaminophen 650 mg 06/16/19 22:47 06/19/19 01:56 Tylenol - PO 650 mg Q6H PRN Administration PAIN LEVEL 1-5 Aspirin 81 mg 06/17/19 10:00 06/19/19 09:02 Ecotrin - PO 81 mg DAILY JT Administration Atenolol 50 mg 06/17/19 10:00 06/19/19 09:02 Tenormin - PO 50 mg DAILY JT Administration Gabapentin 600 mg 06/17/19 22:00 06/19/19 09:02 Neurontin - PO 600 mg BID JT Administration Heparin Sodium (Porcine) 5,000 unit 06/17/19 10:00 06/19/19 09:01 Heparin - SQ 5,000 unit BID JT Administration Hydralazine HCl 25 mg 06/17/19 14:00 06/19/19 13:18 Apresoline - PO 25 mg TID JT Administration Hydrocortisone 1 applic 06/17/19 22:00 06/19/19 09:09 Anusol 2.5% Hc Cream - TP 1 applic BID JT Administration Insulin Aspart 1 vial 06/17/19 07:00 06/19/19 11:15 Novolog Vial Sliding Scale - SQ 2 units ACHS JT Administration Protocol Insulin Detemir 30 units 06/17/19 07:00 06/19/19 06:37 Levemir Vial SQ 30 units AM JT Administration Levothyroxine Sodium 100 mcg 06/17/19 07:00 06/19/19 06:37 Synthroid - PO 100 mcg DAILY@0700 JT Administration Melatonin 10 mg 06/17/19 22:00 06/18/19 21:10 Melatonin PO Not Given HS JT Nifedipine 30 mg 06/17/19 22:00 06/19/19 09:03 Procardia Xl - PO 30 mg BID JT Administration Oxycodone HCl 5 mg 06/18/19 18:41 06/18/19 21:08 Roxicodone - PO 5 mg Q6H PRN Administration PAIN LEVEL 7 - 10 Valsartan 320 mg 06/18/19 10:00 06/19/19 09:02 Diovan - PO 320 mg DAILY JT Administration Constitutional: Yes: No Distress Eyes: Yes: Conjunctiva Clear HENT: Yes: Atraumatic Neck: Yes: Supple Cardiovascular: Yes: Regular Rate and Rhythm Respiratory: Yes: CTA Bilaterally Gastrointestinal Inspection: Yes: Distention, Scars (healed laparoscopic and Pfannensteil incisions) ...Auscultate: Yes: Normoactive Bowel Sounds ...Palpate: Yes: Soft, Other (nontender) ...Percussion: Yes: Tympanitic ...Rectal Exam: Yes: Guaiac Negative (soft brown g neg stool) Edema: No Neurological: Yes: Alert, Oriented Labs: CBC, BMP 06/17/19 06:00 06/18/19 12:50 Problem List - Problems (1) Microcytic anemia Code(s): D50.9 - IRON DEFICIENCY ANEMIA, UNSPECIFIED (2) Family history of colon cancer in father Code(s): Z80.0 - FAMILY HISTORY OF MALIGNANT NEOPLASM OF DIGESTIVE ORGANS (3) Constipation Code(s): K59.00 - CONSTIPATION, UNSPECIFIED (4) Chronic renal insufficiency Code(s): N18.9 - CHRONIC KIDNEY DISEASE, UNSPECIFIED (5) Hypertensive emergency Code(s): I16.1 - HYPERTENSIVE EMERGENCY (6) Hypothyroidism Code(s): E03.9 - HYPOTHYROIDISM, UNSPECIFIED (7) Shingles (herpes zoster) polyneuropathy Code(s): B02.23 - POSTHERPETIC POLYNEUROPATHY (8) Controlled type 1 diabetes mellitus with diabetic neuropathy Code(s): E10.40 - TYPE 1 DIABETES MELLITUS WITH DIABETIC NEUROPATHY, UNSP Assessment/Plan Assessment: - Despite being negative for occult blood, given her microcytic indices, constipation and FH of colon cancer panendoscopy has been advised once she recovers from her herpes zoster Plan: -- I advised Destiny to take Miralax TID x 5 days then once daily to relieve a suspected fecal impaction -- I gave her my business card to make an appointment to my office at which time and EGD and a colonoscopy will be arranged.
--- NOTE | 2019-06-19 15:15 | PN ---
Progress Note (short form) - Note Progress Note: Renal follow up for CKD and hypertension Seen and examined at the bedside no acute complaints neck discomfort is improved no MELGAR, chest pain, abd pain, fever or chills has not had a BM yet Vital Signs Temperature 97.7 F 06/19/19 10:00 Pulse Rate 60 06/19/19 10:00 Respiratory Rate 18 06/19/19 10:00 Blood Pressure 141/71 06/19/19 10:00 O2 Sat by Pulse Oximetry (%) 98 06/19/19 10:00 NAD rash on left side of neck RRR CTA soft NT/ND no LE edema CBC, BMP 06/17/19 06:00 Current Medications Acetaminophen (Tylenol -) 650 mg PO Q6H PRN PRN Reason: PAIN LEVEL 1-5 Last Admin: 06/18/19 09:06 Dose: 650 mg Aspirin (Ecotrin -) 81 mg PO DAILY [facility] Last Admin: 06/18/19 09:07 Dose: 81 mg Atenolol (Tenormin -) 50 mg PO DAILY [facility] Last Admin: 06/18/19 09:07 Dose: 50 mg Gabapentin (Neurontin -) 600 mg PO BID [facility] Last Admin: 06/18/19 09:07 Dose: 600 mg Heparin Sodium (Porcine) (Heparin -) 5,000 unit SQ BID [facility] Last Admin: 06/18/19 09:05 Dose: 5,000 unit Hydralazine HCl (Apresoline -) 25 mg PO TID [facility] Last Admin: 06/18/19 06:06 Dose: 25 mg Hydrocortisone (Anusol 2.5% Hc Cream -) 1 applic TP BID [facility] Last Admin: 06/18/19 09:12 Dose: 1 applic Insulin Aspart (Novolog Vial Sliding Scale -) 1 vial SQ ACHS [facility]; Protocol Last Admin: 06/18/19 10:58 Dose: 2 units Insulin Detemir (Levemir Vial) 30 units SQ AM [facility] Last Admin: 06/18/19 05:59 Dose: Not Given Levothyroxine Sodium (Synthroid -) 100 mcg PO DAILY@0700 [facility] Last Admin: 06/18/19 06:06 Dose: 100 mcg Melatonin (Melatonin) 10 mg PO HS [facility] Last Admin: 06/18/19 01:56 Dose: 10 mg Nifedipine (Procardia Xl -) 30 mg PO BID [facility] Last Admin: 06/18/19 09:11 Dose: 30 mg Valsartan (Diovan -) 320 mg PO DAILY JT Last Admin: 06/18/19 09:06 Dose: 320 mg 59 year old woman with history of CKD stage 3/4, difficult to control hypertension, DM type 1 who presents with uncontrolled hypertension and suspected shingles rash on her left side of her neck. 1. CKD stage 3/4 2. Uncontrolled hypertension/hypertensive urgency 3. Shingles rash 4. Pain 5. DM type 1 Renal function stable BP improved continue present medications stable for discharge from renal perspective to follow up in our office for management of CKD. Thank you Jose Wall DO
[2019-06-19 15:42] VITALS: BP 174/85; TEMP 98
== END 2019-06-19 17:54 | disposition home or self-care (01) | DRG 305 ==
LOC: JER 15:40 → JERBED 17:41 → J4S 23:03
PROVIDERS: ADMIT Internal Medicine; ATTEND Family Medicine
DX: I16.1 Hypertensive emergency (principal); B02.23 Postherpetic polyneuropathy; N17.9 Acute kidney failure, unspecified; N18.4 Chronic kidney disease, stage 4 (severe); Z79.4 Long term (current) use of insulin; I44.0 Atrioventricular block, first degree; E03.9 Hypothyroidism, unspecified; E11.40 Type 2 diabetes mellitus with diabetic neuropathy, unspecified; D64.9 Anemia, unspecified; E11.22 Type 2 diabetes mellitus with diabetic chronic kidney disease; I12.9 Hypertensive chronic kidney disease with stage 1 through stage 4 chronic kidney disease, or unspecified chronic kidney disease
CPT/HCPCS: 36415; 70450-TC; 71045-TC-FY; 80048; 80053; 82024; 82533; 82570; 82728; 82962; 83036; 83540; 83550; 84439; 84443; 84484; 84585; 85025; 85027; 85651; 85730; 86140; 93005; 93010; 99285-25; J0131; J1644

== ENCOUNTER 2020-07-26 06:47 | Day surgery (SDC) | payer BC ==
[2020-07-26] MEDS ORDERED: IRON SUCROSE INJECTION 100 MG in SODIUM CHLORIDE 100 ML IVPB ONE (09:00)
[2020-07-26 09:46] VITALS: BP 127/66; PULSE 63; TEMP 97.9
== END 2020-07-26 09:46 | disposition home or self-care (01) ==
LOC: JINFUSION 06:47
PROVIDERS: ATTEND Internal Medicine Nephrology
PROC: 3E033GC Introduction of Other Therapeutic Substance into Peripheral Vein, Percutaneous Approach (ICD-10-PCS; principal; 2020-07-26)
DX: D50.9 Iron deficiency anemia, unspecified (principal)
CPT/HCPCS: 96365; J1756

== ENCOUNTER 2020-08-02 05:03 | Day surgery (SDC) | payer BC ==
[2020-08-02] MEDS ORDERED: IRON SUCROSE INJECTION 100 MG in SODIUM CHLORIDE 100 ML IVPB ONE (07:30)
[2020-08-02 08:01] VITALS: PULSE 74; TEMP 98.2
[2020-08-02 08:39] VITALS: BP 112/51
[2020-08-02] MEDS ORDERED: HYDROCORTISONE SOD SUCCINATE 100 MG/2 ML VIAL IVPUSH ONE (09:00)
[2020-08-02] MEDS ORDERED: methylPREDNISolone NA SUCC 125 MG/2 ML VIAL IVPUSH ONE (10:00)
== END 2020-08-02 09:02 | disposition home or self-care (01) ==
LOC: JINFUSION 05:03
PROVIDERS: ATTEND Internal Medicine Nephrology
PROC: 3E033GC Introduction of Other Therapeutic Substance into Peripheral Vein, Percutaneous Approach (ICD-10-PCS; principal; 2020-08-02)
DX: D50.9 Iron deficiency anemia, unspecified (principal)
CPT/HCPCS: 96365; J1756

== ENCOUNTER 2020-08-02 19:53 | Emergency (ER) | payer BC ==
[2020-08-02 20:03] VITALS: BP 145/62; PULSE 80; TEMP 98.1; BMI 28.1
[2020-08-02] MEDS ORDERED: PANTOPRAZOLE SODIUM 40 MG VIAL IVPUSH ONE (21:01)
[2020-08-02 21:51] LABS: BASO % 0.3 % (0-2.0); HEMOGLOBIN 8.6 GM/dL (10.7-15.3); MCH 26.4 pg (25.7-33.7); MCHC 33.2 g/dl (32.0-36.0); MEAN CELL VOLUME 79.4 fl (80-96); MEAN PLT VOLUME 8.3 fl (7.5-11.1); MONO % 4.9 % (3.8-10.2); NEUT % 75.8 % (42.8-82.8); PLATELET COUNT 230 K/MM3 (134-434); RBC 3.27 M/mm3 (3.60-5.2); RDW 16.6 % (11.6-15.6); WHITE BLOOD COUNT 6.7 K/mm3 (4.0-10.0)
[2020-08-02 21:59] LABS: INR 1.2 (0.83-1.09); PROTHROMBIN TIME (PATIENT) 14.5 SEC (9.7-13.0)
[2020-08-02 22:01] LABS: ACTIVATED PTT 33.5 SECONDS (25.2-36.5)
[2020-08-02] MEDS ORDERED: PANTOPRAZOLE SODIUM 40 MG VIAL ONE (22:05)
[2020-08-02 22:09] LABS: POTASSIUM 4.7 mmol/L (3.5-5.1)
[2020-08-02 22:11] LABS: CALCIUM 8.9 mg/dL (8.5-10.1)
[2020-08-02 22:12] LABS: ALBUMIN 3.6 g/dl (3.4-5.0); BLOOD UREA NITROGEN 49.7 mg/dL (7-18)
[2020-08-02 22:15] LABS: CREATININE 3.6 mg/dL (0.55-1.3)
[2020-08-02 22:17] LABS: BILIRUBIN,TOTAL 0.5 mg/dL (0.2-1); TOT PROT 6.9 g/dl (6.4-8.2)
[2020-08-02] MEDS ORDERED: LACTATED RINGERS SOLUTION 1000 ML INFUS.BAG IV ONE ×2 (23:06→23:33)
[2020-08-03] MEDS ORDERED: ACETAMINOPHEN 325 MG TABLET (FP) PO ONE (01:20)
[2020-08-03] MEDS ORDERED: ACETAMINOPHEN 325 MG TABLET (FP) ONE (01:48)
[2020-08-03 04:43] LABS: BASO % 0.3 % (0-2.0); HEMATOCRIT 22.7 % (32.4-45.2); HEMOGLOBIN 7.4 GM/dL (10.7-15.3); LYMPH % 25.4 % (8-40); MCHC 32.7 g/dl (32.0-36.0); MEAN CELL VOLUME 79.5 fl (80-96); MEAN PLT VOLUME 8.4 fl (7.5-11.1); MONO % 4.8 % (3.8-10.2); NEUT % 69.5 % (42.8-82.8); PLATELET COUNT 202 K/MM3 (134-434); RBC 2.85 M/mm3 (3.60-5.2); RDW 16.4 % (11.6-15.6); WHITE BLOOD COUNT 6.1 K/mm3 (4.0-10.0)
[2020-08-03 04:53] LABS: POTASSIUM 4.4 mmol/L (3.5-5.1)
[2020-08-03 04:55] LABS: CALCIUM 8.1 mg/dL (8.5-10.1)
[2020-08-03 04:56] LABS: BLOOD UREA NITROGEN 41.4 mg/dL (7-18)
[2020-08-03 04:59] LABS: CREATININE 3.1 mg/dL (0.55-1.3)
[2020-08-03 05:00] LABS: BILIRUBIN,TOTAL 0.3 mg/dL (0.2-1); TOT PROT 5.7 g/dl (6.4-8.2)
== END 2020-08-03 06:11 | disposition left against medical advice (07) ==
LOC: JER 19:53
PROC: 3E033GC Introduction of Other Therapeutic Substance into Peripheral Vein, Percutaneous Approach (ICD-10-PCS; principal; 2020-08-02)
DX: R19.5 Other fecal abnormalities (principal); D64.9 Anemia, unspecified; N17.9 Acute kidney failure, unspecified
CPT/HCPCS: 36415; 71045-TC-FY; 71250-TC; 74176-TC; 80053; 82272; 82962; 83605; 84443; 84484; 85025; 85610; 85730; 86850; 86900; 86901; 93005; 93010; 99285-25; C9803; U0003

== ENCOUNTER 2020-08-07 14:21 | Inpatient (IN) | payer BC, OTHER ==
[2020-08-07 15:14] LABS: BASO % 0.3 % (0-2.0); EOS % 0.2 % (0-4.5); HEMATOCRIT 24.2 % (32.4-45.2); HEMOGLOBIN 8.1 GM/dL (10.7-15.3); LYMPH % 8.9 % (8-40); MCH 26.9 pg (25.7-33.7); MCHC 33.6 g/dl (32.0-36.0); MEAN PLT VOLUME 8.2 fl (7.5-11.1); MONO % 5.3 % (3.8-10.2); NEUT % 85.3 % (42.8-82.8); PLATELET COUNT 338 K/MM3 (134-434); RBC 3.02 M/mm3 (3.60-5.2); RDW 16.5 % (11.6-15.6); WHITE BLOOD COUNT 8.9 K/mm3 (4.0-10.0)
[2020-08-07 15:27] LABS: INR 1.21 (0.83-1.09); PROTHROMBIN TIME (PATIENT) 14.8 SEC (9.7-13.0)
[2020-08-07 15:29] LABS: ACTIVATED PTT 28.8 SECONDS (25.2-36.5)
[2020-08-07 15:38] LABS: CHLORIDE 110 mmol/L (98-107); POTASSIUM 5.8 mmol/L (3.5-5.1); SODIUM 137 mmol/L (136-145)
[2020-08-07 15:39] LABS: ANION GAP 9 MMOL/L (8-16); CALCIUM 8.2 mg/dL (8.5-10.1); CO2 19 mmol/L (21-32); GLUCOSE,RANDOM 195 mg/dL (74-106)
[2020-08-07 15:41] LABS: BLOOD UREA NITROGEN 59.5 mg/dL (7-18)
[2020-08-07 15:43] LABS: BILIRUBIN,DIRECT 0.1 mg/dL (0.0-0.2); CREATININE 3.5 mg/dL (0.55-1.3); LDH 555 U/L (84-246); SGOT/AST 41 U/L (15-37); SGPT/ALT 48 U/L (13-61)
[2020-08-07 15:44] LABS: BILIRUBIN,TOTAL 0.7 mg/dL (0.2-1); TOT PROT 7.1 g/dl (6.4-8.2)
[2020-08-07 15:45] LABS: ALK PHOS 107 U/L (45-117)
[2020-08-07 16:54] LABS: POTASSIUM 5.3 mmol/L (3.5-5.1)
[2020-08-07 16:56] LABS: BLOOD UREA NITROGEN 57.9 mg/dL (7-18); CALCIUM 8.1 mg/dL (8.5-10.1)
[2020-08-07 17:00] LABS: CREATININE 3.7 mg/dL (0.55-1.3)
[2020-08-07] MEDS ORDERED: SODIUM ZIRCONIUM CYCLOSILICATE (LOKELMA) 5 GM PACKET ONE (17:35)
[2020-08-07] MEDS: SODIUM ZIRCONIUM CYCLOSILICATE (LOKELMA) 5 GM PACKET PO SCH (17:53)
[2020-08-07] MEDS ORDERED: ENOXAPARIN NA (PORCINE) 40 MG/0.4 ML DISP.SYRIN SQ SCH (20:30)
[2020-08-07] MEDS ORDERED: PANTOPRAZOLE 20 MG TABLET PO ONE (21:32)
[2020-08-07] MEDS ORDERED: AZITHROMYCIN IVPB 500 MG/250 ML BAG IVPB ONE (21:32)
[2020-08-07] MEDS ORDERED: CEFTRIAXONE 1 GM/50 ML BAG ONE (21:32)
[2020-08-07] MEDS: CEFTRIAXONE 1 GM in DEXTROSE 5%-WATER - 50 ML IVPB SCH (21:43)
[2020-08-07] MEDS: PANTOPRAZOLE 20 MG TABLET PO SCH (21:43)
[2020-08-07] MEDS: AZITHROMYCIN IVPB 500 MG/250 ML BAG IVPB SCH (21:47)
[2020-08-07] MEDS: INSULIN (LEVEMIR) 100 UNITS/ML UNITS SQ SCH (21:56)
[2020-08-07] MEDS ORDERED: ENOXAPARIN NA (PORCINE) 40 MG/0.4 ML DISP.SYRIN SQ ONE (22:26)
[2020-08-07] MEDS: ENOXAPARIN NA (PORCINE) 40 MG/0.4 ML DISP.SYRIN SQ ONE ×2 (22:27→23:09)
[2020-08-07] MEDS ORDERED: HEPARIN NA (PORCINE) 5,000 UNITS/ML 1ML VIAL ONE (23:02)
[2020-08-07] MEDS: HEPARIN NA (PORCINE) 5,000 UNITS/ML 1ML VIAL SQ SCH (23:09)
[2020-08-08 00:56] LABS: HYALINE CASTS 4 /uL (0-3.1); URINE APPEARANCE TURBID; URINE GLUCOSE (UA) NEGATIVE (NEGATIVE); URINE KETONE NEGATIVE (NEGATIVE); URINE UROBILINOGEN 0.2 mg/dL (0.2-1.0)
[2020-08-08 01:35] LABS: URINE BILIRUBIN NEGATIVE (NEGATIVE); URINE COLOR YELLOW
[2020-08-08 01:36] LABS: URINE LEUK ESTERASE NEGATIVE (NEGATIVE); URINE PROTEIN NEGATIVE (NEGATIVE)
[2020-08-08 01:37] LABS: URINE RBC 4 /uL (0-23.9)
[2020-08-08 01:38] LABS: EPI CELLS 1 /uL (0-25.1); URINE WBC 5 /uL (0-25.8)
[2020-08-08 01:39] LABS: URINE BACTERIA 2 /uL (0-1359); URINE NITRITE NEGATIVE (NEGATIVE)
[2020-08-08 02:00] LABS: POTASSIUM 4.1 mmol/L (3.5-5.1)
[2020-08-08 02:01] LABS: ALBUMIN 2.8 g/dl (3.4-5.0); CALCIUM 8.1 mg/dL (8.5-10.1)
[2020-08-08 02:02] LABS: BLOOD UREA NITROGEN 58.9 mg/dL (7-18)
[2020-08-08 02:05] LABS: CREATININE 3.6 mg/dL (0.55-1.3)
[2020-08-08 02:08] LABS: TOT PROT 6.2 g/dl (6.4-8.2)
[2020-08-08 02:12] LABS: BILIRUBIN,TOTAL 0.3 mg/dL (0.2-1)
[2020-08-08 02:57] VITALS: BMI 28.7
[2020-08-08] MEDS ORDERED: HEPARIN NA (PORCINE) 5,000 UNITS/ML 1ML VIAL SQ SCH (06:00)
[2020-08-08] MEDS: HEPARIN NA (PORCINE) 5,000 UNITS/ML 1ML VIAL SQ SCH (06:24)
[2020-08-08] MEDS: LEVOTHYROXINE NA 100 MCG TABLET (FP) PO SCH (06:26)
[2020-08-08] MEDS: ACETAMINOPHEN 325 MG TABLET (FP) PO PRN (06:42)
[2020-08-08] MEDS: INSULIN (LEVEMIR) 100 UNITS/ML UNITS SQ SCH ×2 (06:45→23:12)
[2020-08-08] MEDS ORDERED: PT OWN MED DRAWER 7, Y5N ONE (09:03)
[2020-08-08] MEDS ORDERED: cefTRIAXone SODIUM 1 GM VIAL ONE (09:03)
[2020-08-08] MEDS ORDERED: DEXTROSE 5%-WATER - 50 ML IVPB ONE (09:04)
[2020-08-08 09:20] LABS: BASO % 0.7 % (0-2.0); EOS % 0.9 % (0-4.5); HEMATOCRIT 22.9 % (32.4-45.2); HEMOGLOBIN 7.6 GM/dL (10.7-15.3); LYMPH % 19.1 % (8-40); MCH 26.7 pg (25.7-33.7); MCHC 33.4 g/dl (32.0-36.0); MEAN PLT VOLUME 8.3 fl (7.5-11.1); MONO % 7.3 % (3.8-10.2); PLATELET COUNT 362 K/MM3 (134-434); POTASSIUM 4.3 mmol/L (3.5-5.1); RBC 2.86 M/mm3 (3.60-5.2); RDW 16.5 % (11.6-15.6); WHITE BLOOD COUNT 7.4 K/mm3 (4.0-10.0)
[2020-08-08] MEDS: ASPIRIN COATED 81 MG TABLET.EC PO SCH (09:25)
[2020-08-08] MEDS: APIXABAN 2.5 MG TABLET PO SCH ×2 (09:25→23:12)
[2020-08-08] MEDS: CEFTRIAXONE 1 GM in DEXTROSE 5%-WATER - 50 ML IVPB SCH (09:25)
[2020-08-08] MEDS: PANTOPRAZOLE 20 MG TABLET PO SCH (09:25)
[2020-08-08 09:28] LABS: ALBUMIN 2.7 g/dl (3.4-5.0); BLOOD UREA NITROGEN 60.6 mg/dL (7-18); CALCIUM 8.2 mg/dL (8.5-10.1)
[2020-08-08 09:30] LABS: CREATININE 3.5 mg/dL (0.55-1.3)
[2020-08-08 09:32] LABS: BILIRUBIN,TOTAL 0.4 mg/dL (0.2-1); TOT PROT 6.2 g/dl (6.4-8.2)
[2020-08-08] MEDS: AZITHROMYCIN IVPB 500 MG/250 ML BAG IVPB SCH (09:40)
[2020-08-08] MEDS: SODIUM ZIRCONIUM CYCLOSILICATE (LOKELMA) 5 GM PACKET PO SCH (12:48)
[2020-08-08] MEDS: LACTATED RINGERS SOLUTION 1,000 ML/1,000 ML INFUS.BAG IV SCH (14:08)
[2020-08-09] MEDS: LEVOTHYROXINE NA 100 MCG TABLET (FP) PO SCH (06:50)
[2020-08-09] MEDS: INSULIN (LEVEMIR) 100 UNITS/ML UNITS SQ SCH ×2 (06:50→22:30)
[2020-08-09 08:32] LABS: HEMATOCRIT 22.4 % (32.4-45.2); HEMOGLOBIN 7.5 GM/dL (10.7-15.3); MCHC 33.6 g/dl (32.0-36.0); MEAN CELL VOLUME 80.3 fl (80-96); MEAN PLT VOLUME 7.7 fl (7.5-11.1); PLATELET COUNT 400 K/MM3 (134-434); RBC 2.79 M/mm3 (3.60-5.2); RDW 16.1 % (11.6-15.6); WHITE BLOOD COUNT 5.6 K/mm3 (4.0-10.0)
[2020-08-09 08:53] LABS: POTASSIUM 4.6 mmol/L (3.5-5.1)
[2020-08-09 08:57] LABS: CALCIUM 8.5 mg/dL (8.5-10.1)
[2020-08-09 09:00] LABS: ALBUMIN 2.6 g/dl (3.4-5.0); MAGNESIUM 2.6 mg/dL (1.8-2.4)
[2020-08-09 09:02] LABS: CREATININE 2.4 mg/dL (0.55-1.3)
[2020-08-09 09:03] LABS: PHOSPHOROUS 3.9 mg/dL (2.5-4.9)
[2020-08-09 09:05] LABS: BILIRUBIN,TOTAL 0.5 mg/dL (0.2-1)
[2020-08-09] MEDS ORDERED: cefTRIAXone SODIUM 1 GM VIAL ONE (09:08)
[2020-08-09] MEDS ORDERED: DEXTROSE 5%-WATER - 50 ML IVPB ONE (09:08)
[2020-08-09] MEDS: CEFTRIAXONE 1 GM in DEXTROSE 5%-WATER - 50 ML IVPB SCH (09:39)
[2020-08-09] MEDS: ASPIRIN COATED 81 MG TABLET.EC PO SCH (09:39)
[2020-08-09] MEDS: PANTOPRAZOLE 20 MG TABLET PO SCH (09:40)
[2020-08-09] MEDS: APIXABAN 2.5 MG TABLET PO SCH ×2 (09:40→22:30)
[2020-08-09] MEDS: ZINC SULFATE 220 MG CAPSULE (FP) PO SCH (09:40)
[2020-08-09] MEDS ORDERED: ASCORBIC ACID 250 MG TABLET (FP) PO SCH ×2 (10:00→23:30)
[2020-08-09] MEDS ORDERED: PT OWN MED DRAWER 7, Y5N ONE (11:23)
[2020-08-09] MEDS: AZITHROMYCIN IVPB 500 MG/250 ML BAG IVPB SCH (11:39)
[2020-08-09] MEDS ORDERED: EPOETIN ALFA 20,000 UNIT/1 ML VIAL SQ ONE (14:21)
[2020-08-09] MEDS: LACTATED RINGERS SOLUTION 1,000 ML/1,000 ML INFUS.BAG IV SCH ×2 (18:02→19:44)
[2020-08-09] MEDS: FERROUS SO4 325 MG TABLET (FP) PO SCH (19:45)
[2020-08-09] MEDS: LABETALOL HCL 100 MG TABLET (FP) PO SCH (22:28)
[2020-08-09] MEDS: hydrALAZINE HCL 50 MG TABLET (FP) PO SCH (22:30)
[2020-08-10] MEDS: LEVOTHYROXINE NA 100 MCG TABLET (FP) PO SCH (06:39)
[2020-08-10] MEDS: hydrALAZINE HCL 50 MG TABLET (FP) PO SCH ×2 (06:39→15:26)
[2020-08-10] MEDS: INSULIN (LEVEMIR) 100 UNITS/ML UNITS SQ SCH (07:17)
[2020-08-10] MEDS: LACTATED RINGERS SOLUTION 1,000 ML/1,000 ML INFUS.BAG IV SCH (08:20)
[2020-08-10 09:16] LABS: HEMATOCRIT 23.6 % (32.4-45.2); HEMOGLOBIN 7.9 GM/dL (10.7-15.3); MCH 26.7 pg (25.7-33.7); MCHC 33.4 g/dl (32.0-36.0); MEAN CELL VOLUME 79.9 fl (80-96); PLATELET COUNT 491 K/MM3 (134-434); RBC 2.96 M/mm3 (3.60-5.2); RDW 16.2 % (11.6-15.6); WHITE BLOOD COUNT 6.5 K/mm3 (4.0-10.0)
[2020-08-10 09:30] LABS: POTASSIUM 4.5 mmol/L (3.5-5.1)
[2020-08-10 09:35] LABS: BLOOD UREA NITROGEN 26.6 mg/dL (7-18); CALCIUM 8.5 mg/dL (8.5-10.1)
[2020-08-10 09:38] LABS: CREATININE 1.9 mg/dL (0.55-1.3)
[2020-08-10] MEDS ORDERED: VALSARTAN 160 MG TABLET PO SCH (10:45)
[2020-08-10] MEDS ORDERED: cefTRIAXone SODIUM 1 GM VIAL ONE (10:59)
[2020-08-10] MEDS ORDERED: DEXTROSE 5%-WATER - 50 ML IVPB ONE (10:59)
[2020-08-10] MEDS: LABETALOL HCL 100 MG TABLET (FP) PO SCH (11:09)
[2020-08-10] MEDS: ZINC SULFATE 220 MG CAPSULE (FP) PO SCH (11:10)
[2020-08-10] MEDS: ASPIRIN COATED 81 MG TABLET.EC PO SCH (11:10)
[2020-08-10] MEDS: PANTOPRAZOLE 20 MG TABLET PO SCH (11:10)
[2020-08-10] MEDS: APIXABAN 2.5 MG TABLET PO SCH (11:10)
[2020-08-10] MEDS: AZITHROMYCIN IVPB 500 MG/250 ML BAG IVPB SCH (11:11)
[2020-08-10] MEDS: FERROUS SO4 325 MG TABLET (FP) PO SCH (11:11)
[2020-08-10] MEDS: CEFTRIAXONE 1 GM in DEXTROSE 5%-WATER - 50 ML IVPB SCH (11:11)
[2020-08-10] MEDS ORDERED: PT OWN MED DRAWER 7, Y5N ONE (15:04)
[2020-08-10] MEDS: ACETAMINOPHEN 325 MG TABLET (FP) PO PRN (15:26)
[2020-08-10 15:34] VITALS: BP 167/78; PULSE 73; TEMP 98.4
== END 2020-08-10 21:00 | disposition home health service (06) | DRG 177 ==
LOC: JER 14:21 → JERBED 17:01 → J6S 08-08 00:06
PROVIDERS: ATTEND Internal Medicine
DX: U07.1 COVID-19 (principal); J12.89 Other viral pneumonia; N17.9 Acute kidney failure, unspecified; N18.5 Chronic kidney disease, stage 5; E03.9 Hypothyroidism, unspecified; D64.9 Anemia, unspecified; E78.5 Hyperlipidemia, unspecified; I12.9 Hypertensive chronic kidney disease with stage 1 through stage 4 chronic kidney disease, or unspecified chronic kidney disease; E11.22 Type 2 diabetes mellitus with diabetic chronic kidney disease; K59.09 Other constipation; R63.0 Anorexia; Z68.28 Body mass index [BMI] 28.0-28.9, adult; I25.10 Atherosclerotic heart disease of native coronary artery without angina pectoris
CPT/HCPCS: 36415; 71045-TC-FY; 80048; 80053; 81003; 82248; 82550; 82553; 82728; 82962; 83540; 83550; 83615; 83735; 84100; 84443; 84484; 85025; 85027; 85379; 85610; 85730; 86140; 86850; 86900; 86901; 87040; 87086; 87205; 93005; 93010; 99285-25; J0885; J1644

== ENCOUNTER 2020-08-17 22:17 | Emergency (ER) | payer BC, OTHER ==
[2020-08-17 22:44] VITALS: BP 160/70; PULSE 94; TEMP 98.6; BMI 29.2
[2020-08-17 23:26] LABS: ARTERIAL BLD GAS O2 SATURATION 99.2 mmHg (95-98); ARTERIAL BLOOD GAS BASE EXCESS -8.2 mmol/L (-2-2); ARTERIAL BLOOD GAS PO2 186.2 mmHg (80-100); ARTERIAL BLOOD GAS pH 7.327 (7.350-7.450)
[2020-08-17 23:27] LABS: ALLENS TEST POSITIVE
[2020-08-18 00:24] LABS: BASO % 0.9 % (0-2.0); EOS % 1.1 % (0-4.5); HEMATOCRIT 25.5 % (32.4-45.2); HEMOGLOBIN 8.4 GM/dL (10.7-15.3); LYMPH % 21.3 % (8-40); MCH 27.2 pg (25.7-33.7); MEAN CELL VOLUME 82.3 fl (80-96); MEAN PLT VOLUME 6.9 fl (7.5-11.1); MONO % 7.8 % (3.8-10.2); NEUT % 68.9 % (42.8-82.8); PLATELET COUNT 629 K/MM3 (134-434); RDW 16.7 % (11.6-15.6)
[2020-08-18 00:48] LABS: CHLORIDE 111 mmol/L (98-107); SODIUM 139 mmol/L (136-145)
[2020-08-18 00:50] LABS: CALCIUM 9.6 mg/dL (8.5-10.1)
[2020-08-18 00:51] LABS: ALBUMIN 3.6 g/dl (3.4-5.0); ANION GAP 7 MMOL/L (8-16); BLOOD UREA NITROGEN 34.6 mg/dL (7-18); CO2 21 mmol/L (21-32); GLUCOSE,RANDOM 222 mg/dL (74-106); MAGNESIUM 1.9 mg/dL (1.8-2.4)
[2020-08-18 00:54] LABS: CREATININE 2.7 mg/dL (0.55-1.3); SGOT/AST 25 U/L (15-37); SGPT/ALT 62 U/L (13-61)
[2020-08-18 00:56] LABS: BILIRUBIN,TOTAL 0.2 mg/dL (0.2-1); TOT PROT 7.1 g/dl (6.4-8.2)
[2020-08-18 00:57] LABS: ALK PHOS 121 U/L (45-117); N-TERMINAL BNP 92.7 pg/ml (5-125)
[2020-08-18 00:59] LABS: LDH 278 U/L (84-246)
== END 2020-08-18 02:57 | disposition home or self-care (01) ==
LOC: JER 22:17
DX: J70.5 Respiratory conditions due to smoke inhalation (principal)
CPT/HCPCS: 36415; 36600; 71046-TC-FY; 80053; 82375; 82550; 82553; 82728; 82803; 83615; 83735; 83880; 84484; 85025; 85379; 85730; 86140; 93005; 93010; 99285-25

== ENCOUNTER 2022-01-02 20:03 | Emergency (ER) | payer OTHER ==
[2022-01-02 20:09] VITALS: TEMP 98.6; BMI 29.2
[2022-01-02] MEDS ORDERED: CYCLOBENZAPRINE HCL 10 MG TABLET (FP) PO ONE (20:47)
[2022-01-02] MEDS ORDERED: CYCLOBENZAPRINE HCL 10 MG TABLET (FP) ONE (20:49)
[2022-01-02 21:34] VITALS: BP 189/75; PULSE 63
[2022-01-02] MEDS ORDERED: LIDOCAINE 5% TOPICAL PATCH TP ONE (21:51)
[2022-01-02] MEDS ORDERED: LIDOCAINE 5% TOPICAL PATCH ONE (21:53)
[2022-01-02] MEDS ORDERED: LIDOCAINE PATCH REMOVAL MC SCH (22:00)
== END 2022-01-02 22:04 | disposition home or self-care (01) ==
LOC: JER 20:03 → JERFT 20:03
DX: M54.50 Low back pain, unspecified (principal); V89.2XXA Person injured in unspecified motor-vehicle accident, traffic, initial encounter
CPT/HCPCS: 71045-TC-FY; 72070-TC-FY; 99284-25

== ENCOUNTER 2023-11-28 11:09 | Emergency (ER) | payer OTHER ==
[2023-11-28 12:24] VITALS: BMI 29.8
[2023-11-28 14:22] VITALS: BP 171/64; PULSE 74; RESP 19; TEMP 98.1
== END 2023-11-28 14:40 | disposition home or self-care (01) ==
LOC: JER 11:09
DX: I10 Essential (primary) hypertension (principal)
CPT/HCPCS: 93005; 93010; 99283-25

== ENCOUNTER 2024-09-04 15:05 | Emergency (ER) | payer OTHER ==
[2024-09-04 15:19] VITALS: PULSE 96; RESP 18; TEMP 98.5; BMI 29.2
[2024-09-04 16:36] VITALS: BP 174/71
== END 2024-09-04 16:51 | disposition home or self-care (01) ==
LOC: JER 15:05
DX: I12.9 Hypertensive chronic kidney disease with stage 1 through stage 4 chronic kidney disease, or unspecified chronic kidney disease (principal); N18.4 Chronic kidney disease, stage 4 (severe)
CPT/HCPCS: 99283-25

== ENCOUNTER 2024-11-05 17:46 | Emergency (ER) | payer OTHER ==
[2024-11-05 18:12] VITALS: BP 123/94; PULSE 92; RESP 19; TEMP 100.2; BMI 28.1
[2024-11-05] MEDS ORDERED: predniSONE 20 MG TABLET (UD) ONE (18:23)
[2024-11-05] MEDS ORDERED: ALBUTEROL SO4 2.5/IPRATROPIUM 0.5 INH SOL 3 ML VIAL.NEB. NEB ONE (18:23)
[2024-11-05] MEDS: predniSONE 20 MG TABLET (UD) PO ONE (18:29)
[2024-11-05] MEDS: ALBUTEROL SO4 2.5/IPRATROPIUM 0.5 INH SOL 3 ML VIAL.NEB. NEB ONE (18:29)
[2024-11-05] MEDS ORDERED: ACETAMINOPHEN 500 MG TABLET (FP) ONE (18:57)
[2024-11-05] MEDS ORDERED: AZITHROMYCIN 500 MG TABLET ONE (18:58)
[2024-11-05] MEDS: ACETAMINOPHEN 500 MG TABLET (FP) PO ONE (19:00)
[2024-11-05] MEDS: AZITHROMYCIN 250 MG TABLET PO ONE (19:02)
[2024-11-05] MEDS ORDERED: ACETAMINOPHEN INJECTION 100 ML ONE (19:05)
[2024-11-05] MEDS ORDERED: ONDANSETRON 4 MG/2 ML VIAL ONE (19:05)
== END 2024-11-05 19:14 | disposition home or self-care (01) ==
LOC: FER 17:46
PROC: 3E0F7GC Introduction of Other Therapeutic Substance into Respiratory Tract, Via Natural or Artificial Opening (ICD-10-PCS; principal; 2024-11-05)
DX: U07.1 COVID-19 (principal); R05.9 Cough, unspecified; R09.81 Nasal congestion; R06.02 Shortness of breath
CPT/HCPCS: 0241U-QW; 36415; 71046-TC-FY; 86803; 94640; 99284-25